=== PATIENT | male | born 1970 | race Caucasian/White ===

== ENCOUNTER 2017-02-23 10:52 | Inpatient (IN) | payer MEDICARE, OTHER ==
[~2017-02-23] VITALS: Ht 193 cm; Wt 87.5 kg
[~2017-02-23 10:52] MED LIST: CLIN-26 PO; NO HOME MEDS
[2017-02-23] MEDS ORDERED: TETanus/Pertussis (Acell)/Diphther VAC/PF (Tdap-Adult) 0.5ml syringe IMVAC ONE (11:35)
[2017-02-23 11:54] LABS: BASOPHILS % (AUTO) 0.2 % (0-1); EOSINOPHILS # (AUTO) 0.1 X10'3 (0-0.9); EOSINOPHILS % (AUTO) 0.9 % (0-6); HEMATOCRIT 29.2 % (42.0-52.0); HEMOGLOBIN 9.1 g/dl (14.0-17.9); LYMPHOCYTES # (AUTO) 0.3 X10'3 (1.1-4.8); LYMPHOCYTES % (AUTO) 3.9 % (21-51); MEAN CORPUSCULAR HEMOGLOBIN 21.5 PG (27.0-31.0); MEAN CORPUSCULAR VOLUME 69.3 FL (78-98); MONOCYTES # (AUTO) 0.7 X10'3 (0-0.9); MONOCYTES % (AUTO) 9.1 % (2-12); NEUTROPHILS # (AUTO) 6.7 X10'3 (1.8-7.7); NEUTROPHILS % (AUTO) 85.9 % (42-75); PLATELET COUNT 101 X10'3 (140-440); RED BLOOD COUNT 4.22 X10'6 (4.70-6.10); RED CELL DISTRIBUTION WIDTH 19.5 % (11.5-14.5); WHITE BLOOD COUNT 7.8 X10'3 (4.5-11.0)
[2017-02-23 12:04] LABS: ANISOCYTOSIS 2+; LARGE PLATELETS FEW; MICROCYTOSIS 2+; PLATELET ESTIMATE DECREASED
[2017-02-23 12:05] LABS: TARGET CELLS FEW
[2017-02-23 12:06] LABS: INR 1.2 INR; PARTIAL THROMBOPLASTIN TIME 33 SECONDS (22-32); PROTHROMBIN TIME 11.9 SECONDS (9.0-12.0)
[2017-02-23 12:10] LABS: ALANINE AMINOTRANSFERASE 24 U/L (12-78); ALBUMIN 3.3 G/DL (3.4-5.0); ALBUMIN/GLOBULIN RATIO 0.8 (1.1-1.5); ALKALINE PHOSPHATASE 126 IU/L (46-116); ANION GAP 6 (8-16); ASPARTATE AMINO TRANSFERASE 17 U/L (10-37); BILIRUBIN,TOTAL 0.6 MG/DL (0.1-1.0); BLOOD UREA NITROGEN 25 MG/DL (7-18); BUN/CREATININE RATIO 20.5 (5.4-32.0); CALCIUM 8.9 MG/DL (8.5-10.1); CHLORIDE 100 MMOL/L (99-107); CREATINE KINASE 53 U/L (39-308); CREATININE 1.22 MG/DL (0.60-1.10); GLUCOSE 83 MG/DL (70-104); POTASSIUM 3.9 MMOL/L (3.5-5.1); SODIUM 132 MMOL/L (135-145); TOTAL CARBON DIOXIDE 25.7 MMOL/L (24-32); TOTAL PROTEIN 7.4 G/DL (6.4-8.2); eGFR 64 ML/MIN
[2017-02-23] MEDS ORDERED: cefTRIAXone 1g/NS 100ml IVPB 100 ML IV ONE (14:05)
[2017-02-23] MEDS ORDERED: vancomycin/NS 1 GM ADD-VANTAGE 250 ML IV ONE (14:15)
[2017-02-23] MEDS ORDERED: magnesium Cl slow-release 64mg tablet PO PRN (14:35)
[2017-02-23] MEDS ORDERED: magnesium 2GM in 50ml NS 50 ML IV PRN (14:35)
[2017-02-23] MEDS ORDERED: bisacodyl 10mg suppository rectal RC PRN (14:35)
[2017-02-23] MEDS ORDERED: HYDROmorphone 1 mg/ml syringe IV PRN (14:35)
[2017-02-23] MEDS ORDERED: potassium Cl 40MEQ/NS 500ml 500 ML IV PRN ×2 (14:35)
[2017-02-23] MEDS ORDERED: potassium Cl 20 mEq SR tablet PO PRN ×2 (14:35)
[2017-02-23] MEDS ORDERED: mag hydrox/Alum hydrox/simeth 30ml oral suspension PO PRN (14:35)
[2017-02-23] MEDS ORDERED: magnesium 4gm in 100ml NS 100 ML IV PRN (14:35)
[2017-02-23] MEDS ORDERED: ondansetron/PF 4mg/2ml inj IV PRN (14:35)
[2017-02-23] MEDS ORDERED: magnesium hydroxide 30ml (MOM) UD suspension PO PRN (14:35)
[2017-02-23] MEDS: oxyCODONE IR 5mg (immed. release) tablet PO PRN (15:16)
[2017-02-23 15:50] LABS: URINE AMPHETAMINE SCREEN POSITIVE (Neg); URINE BARBITUATE SCREEN NEGATIVE (Neg); URINE BENZODIAZEPINES SCREEN NEGATIVE (Neg); URINE CANNABINOID SCREEN POSITIVE (Neg); URINE COCAINE SCREEN NEGATIVE (Neg); URINE METHADONE SCREEN NEGATIVE (Neg); URINE OPIATE SCREEN POSITIVE (Neg); URINE PHENCYCLIDINE SCREEN NEGATIVE (Neg)
[2017-02-23 16:36] VITALS: BP 118/76
[2017-02-23] MEDS ORDERED: ibuprofen tablet 400 MG TABLET PO PRN (17:05)
[2017-02-23] MEDS: folic acid 1mg tablet PO SCH (17:09)
[2017-02-23] MEDS: levoFLOXACIN-Levaquin 500mg/D5 100 ML IV SCH (17:34)
[2017-02-23] MEDS: potassium Cl 20mEq in NS 1,000 ML IV SCH (19:03)
[2017-02-23] MEDS: HYDROmorphone 1 mg/ml syringe IV PRN (19:04)
[2017-02-23] MEDS: docusate sod 100mg capsule PO SCH (19:05)
[2017-02-23 20:00] VITALS: BP 96/60
[2017-02-23] MEDS: thiamine 100mg tablet PO SCH (22:31)
[2017-02-23] MEDS: vancomycin inj 1,250 MG in normal saline 250ml IV soln 250 ML IV SCH (22:31)
[2017-02-24] VITALS: BP 104/69
[2017-02-24] MEDS: potassium Cl 20mEq in NS 1,000 ML IV SCH ×3 (00:32→23:27)
[2017-02-24 04:58] LABS: ALANINE AMINOTRANSFERASE 16 U/L (12-78); ALBUMIN 2.4 G/DL (3.4-5.0); ALBUMIN/GLOBULIN RATIO 0.7 (1.1-1.5); ALKALINE PHOSPHATASE 100 IU/L (46-116); ANION GAP 7 (8-16); ASPARTATE AMINO TRANSFERASE 17 U/L (10-37); BILIRUBIN,TOTAL 0.4 MG/DL (0.1-1.0); BLOOD UREA NITROGEN 19 MG/DL (7-18); BUN/CREATININE RATIO 22.1 (5.4-32.0); CALCIUM 7.9 MG/DL (8.5-10.1); CHLORIDE 105 MMOL/L (99-107); CREATININE 0.86 MG/DL (0.60-1.10); GLUCOSE 90 MG/DL (70-104); MAGNESIUM 1.7 MG/DL (1.5-2.4); POTASSIUM 3.8 MMOL/L (3.5-5.1); SODIUM 135 MMOL/L (135-145); TOTAL CARBON DIOXIDE 22.6 MMOL/L (24-32); TOTAL PROTEIN 5.9 G/DL (6.4-8.2); eGFR > 90 ML/MIN
[2017-02-24 05:19] LABS: BASOPHILS % (AUTO) 0.3 % (0-1); HEMATOCRIT 23.4 % (42.0-52.0); HEMOGLOBIN 7.4 g/dl (14.0-17.9); LYMPHOCYTES # (AUTO) 0.4 X10'3 (1.1-4.8); LYMPHOCYTES % (AUTO) 8.5 % (21-51); MEAN CORPUSCULAR HEMOGLOBIN 21.7 PG (27.0-31.0); MEAN CORPUSCULAR HGB CONC 31.6 % (33.0-36.5); MEAN CORPUSCULAR VOLUME 68.7 FL (78-98); MEAN PLATELET VOLUME 11.4 FL (7.4-10.4); MONOCYTES # (AUTO) 0.7 X10'3 (0-0.9); NEUTROPHILS # (AUTO) 3.1 X10'3 (1.8-7.7); NEUTROPHILS % (AUTO) 74.2 % (42-75); PLATELET COUNT 74 X10'3 (140-440); RED CELL DISTRIBUTION WIDTH 19.5 % (11.5-14.5); WHITE BLOOD COUNT 4.2 X10'3 (4.5-11.0)
[2017-02-24 07:06] LABS: HYPOCHROMASIA 2+; LARGE PLATELETS FEW; PLATELET ESTIMATE DECREASED; POLYCHROMASIA 1+
[2017-02-24 07:07] LABS: ANISOCYTOSIS 2+; MICROCYTOSIS 2+; SCHISTOCYTES FEW; TARGET CELLS FEW
[2017-02-24 07:26] VITALS: BP 103/70
[2017-02-24] MEDS ORDERED: K and/or MAG REPLACEMENT MC SCH (08:00)
[2017-02-24] MEDS ORDERED: enoxaparin 40mg/0.4ml syringe SUBCUT SCH (08:00)
[2017-02-24] MEDS: docusate sod 100mg capsule PO SCH ×2 (08:00→20:00)
[2017-02-24] MEDS: folic acid 1mg tablet PO SCH (08:22)
[2017-02-24] MEDS: vancomycin inj 1,250 MG in normal saline 250ml IV soln 250 ML IV SCH ×3 (08:22→23:00)
[2017-02-24] MEDS: thiamine 100mg tablet PO SCH ×2 (08:22→21:02)
[2017-02-24] MEDS ORDERED: gadopentetate dimeglumine 7.5 MMOL/15 ML syringe ONE (10:00)
[2017-02-24] MEDS ORDERED: pneumococcal 23-VAL P-sac vacc 25 mcg/0.5ml vial IMVAC ONE (10:00)
[2017-02-24] MEDS ORDERED: FLU VACC QS2017-18 36MOS UP/PF 60 MCG/0.5 ML SYRINGE IMVAC ONE (10:00)
[2017-02-24] MEDS: levoFLOXACIN-Levaquin 500mg/D5 100 ML IV SCH (12:06)
[2017-02-24 12:24] VITALS: BP 114/73
[2017-02-24] MEDS: oxyCODONE IR 5mg (immed. release) tablet PO PRN (16:03)
[2017-02-24] MEDS: HYDROmorphone 1 mg/ml syringe IV PRN ×2 (19:25→23:32)
[2017-02-24 19:30] VITALS: BP 112/79
[2017-02-24] MEDS ORDERED: VANCOMYCIN LEVEL IV NR (22:30)
[2017-02-24 23:00] VITALS: BP 115/78
[2017-02-24] MEDS ORDERED: potassium Cl 20mEq in NS 1,000 ML IV ONE (23:24)
[2017-02-25] MEDS: oxyCODONE IR 5mg (immed. release) tablet PO PRN (01:51)
[2017-02-25 06:33] LABS: BASOPHILS % (AUTO) 0.1 % (0-1); EOSINOPHILS % (AUTO) 1.3 % (0-6); HEMATOCRIT 26.6 % (42.0-52.0); HEMOGLOBIN 8.3 g/dl (14.0-17.9); LYMPHOCYTES # (AUTO) 0.4 X10'3 (1.1-4.8); LYMPHOCYTES % (AUTO) 10.6 % (21-51); MEAN CORPUSCULAR HEMOGLOBIN 21.6 PG (27.0-31.0); MEAN CORPUSCULAR HGB CONC 31.3 % (33.0-36.5); MEAN PLATELET VOLUME 10.8 FL (7.4-10.4); MONOCYTES # (AUTO) 0.5 X10'3 (0-0.9); MONOCYTES % (AUTO) 14.6 % (2-12); NEUTROPHILS # (AUTO) 2.6 X10'3 (1.8-7.7); NEUTROPHILS % (AUTO) 73.4 % (42-75); PLATELET COUNT 102 X10'3 (140-440); RED BLOOD COUNT 3.86 X10'6 (4.70-6.10); RED CELL DISTRIBUTION WIDTH 19.1 % (11.5-14.5); WHITE BLOOD COUNT 3.5 X10'3 (4.5-11.0)
[2017-02-25 06:57] LABS: ALANINE AMINOTRANSFERASE 23 U/L (12-78); ALBUMIN 2.8 G/DL (3.4-5.0); ALBUMIN/GLOBULIN RATIO 0.7 (1.1-1.5); ALKALINE PHOSPHATASE 120 IU/L (46-116); ANION GAP 9 (8-16); ASPARTATE AMINO TRANSFERASE 16 U/L (10-37); BILIRUBIN,TOTAL 0.4 MG/DL (0.1-1.0); BLOOD UREA NITROGEN 10 MG/DL (7-18); BUN/CREATININE RATIO 10.8 (5.4-32.0); CALCIUM 8.1 MG/DL (8.5-10.1); CHLORIDE 102 MMOL/L (99-107); CREATININE 0.93 MG/DL (0.60-1.10); GLUCOSE 101 MG/DL (70-104); MAGNESIUM 1.7 MG/DL (1.5-2.4); POTASSIUM 3.4 MMOL/L (3.5-5.1); SODIUM 135 MMOL/L (135-145); TOTAL CARBON DIOXIDE 24.2 MMOL/L (24-32); TOTAL PROTEIN 6.9 G/DL (6.4-8.2); eGFR 88 ML/MIN
[2017-02-25] MEDS ORDERED: vancomycin/NS 1 GM ADD-VANTAGE 250 ML IV SCH ×2 (07:00→09:00)
[2017-02-25 08:00] VITALS: BP 115/72
== END 2017-02-25 08:30 | disposition left against medical advice (07) | DRG 603 ==
LOC: ER 10:53 → ED HOLD 14:15 → EDBEDREQ 15:49 → MED 3N 16:31
PROVIDERS: ADMIT Internal Medicine; ATTEND Family Medicine
DX: L03.115 Cellulitis of right lower limb (principal); D69.6 Thrombocytopenia, unspecified; K70.30 Alcoholic cirrhosis of liver without ascites; E87.1 Hypo-osmolality and hyponatremia; E86.0 Dehydration; D64.9 Anemia, unspecified; F32.9 Major depressive disorder, single episode, unspecified; F41.9 Anxiety disorder, unspecified; I10 Essential (primary) hypertension; J44.9 Chronic obstructive pulmonary disease, unspecified; K21.9 Gastro-esophageal reflux disease without esophagitis; F15.90 Other stimulant use, unspecified, uncomplicated; F12.90 Cannabis use, unspecified, uncomplicated; F10.20 Alcohol dependence, uncomplicated; F17.210 Nicotine dependence, cigarettes, uncomplicated; Z53.21 Procedure and treatment not carried out due to patient leaving prior to being seen by health care provider; Z98.84 Bariatric surgery status; Z90.49 Acquired absence of other specified parts of digestive tract; Z88.0 Allergy status to penicillin; Z88.6 Allergy status to analgesic agent; Z88.8 Allergy status to other drugs, medicaments and biological substances; Z86.73 Personal history of transient ischemic attack (TIA), and cerebral infarction without residual deficits; Z87.11 Personal history of peptic ulcer disease
CPT/HCPCS: 36415; 73590; 73720; 80053; 80202; 80305; 80320; 82550; 83735; 85025; 85610; 85730; 87040; 87070; 90471; 90715; 90732; 93971; 97162; 97530; 99285; A6212; A6446; A6449; A9579; J0696; J1170; J1650; J1956; J3370; J7030; Q2037

== ENCOUNTER 2018-03-08 09:06 | Emergency (ER) | payer MEDICARE, OTHER ==
[~2018-03-08 09:06] MED LIST changes: -CLIN-26 PO
[2018-03-08 09:11] VITALS: BP 103/68
--- NOTE | 2018-03-08 09:40 | NUR ---
Deon allen in ED - 03/08/18 at 0942 by [email or web address] Unknown trauma to finger. States may have slammed it in a door but doesn't remember. 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
--- NOTE | 2018-03-08 09:43 | NUR ---
Unknown trauma to finger. 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
--- NOTE | 2018-03-08 11:01 | NUR ---
pt washed hand with soap and water, took ring off hand. simple dressing applied. will continue to monitor.
[2018-03-08] MEDS ORDERED: SULF1TAB49 PO (11:04)
== END 2018-03-08 11:15 | disposition home or self-care (01) ==
LOC: ER 09:07
DX: L02.512 Cutaneous abscess of left hand (principal); J44.9 Chronic obstructive pulmonary disease, unspecified; K21.9 Gastro-esophageal reflux disease without esophagitis; F12.90 Cannabis use, unspecified, uncomplicated; F15.90 Other stimulant use, unspecified, uncomplicated; Z86.73 Personal history of transient ischemic attack (TIA), and cerebral infarction without residual deficits; Z90.49 Acquired absence of other specified parts of digestive tract; Z88.1 Allergy status to other antibiotic agents; Z88.0 Allergy status to penicillin; Z88.8 Allergy status to other drugs, medicaments and biological substances
CPT/HCPCS: 26010; 73140; 99283

== ENCOUNTER 2018-03-12 18:29 | Emergency (ER) | payer MEDICARE, OTHER ==
[~2018-03-12] VITALS: Ht 193 cm; Wt 82.7 kg
[~2018-03-12 18:29] MED LIST changes: +SULF1TAB49 PO
[2018-03-12 19:29] LABS: BASOPHILS % (AUTO) 0.4 % (0-1); EOSINOPHILS % (AUTO) 1.4 % (0-6); HEMATOCRIT 24.2 % (42.0-52.0); HEMOGLOBIN 7.4 g/dl (14.0-17.9); LYMPHOCYTES # (AUTO) 0.4 X10'3 (1.1-4.8); LYMPHOCYTES % (AUTO) 13.9 % (21-51); MEAN CORPUSCULAR HGB CONC 30.6 g/dL (33.0-36.5); MEAN CORPUSCULAR VOLUME 65.1 FL (78-98); MONOCYTES # (AUTO) 0.3 X10'3 (0-0.9); MONOCYTES % (AUTO) 13.8 % (2-12); NEUTROPHILS # (AUTO) 1.8 X10'3 (1.8-7.7); NEUTROPHILS % (AUTO) 70.5 % (42-75); RED BLOOD COUNT 3.71 X10'6 (4.70-6.10); RED CELL DISTRIBUTION WIDTH 23.5 % (11.5-14.5); WHITE BLOOD COUNT 2.5 X10'3 (4.5-11.0)
[2018-03-12 19:40] LABS: ALANINE AMINOTRANSFERASE 20 U/L (12-78); ALBUMIN 2.8 G/DL (3.4-5.0); ALBUMIN/GLOBULIN RATIO 0.9 (1.1-1.5); ALKALINE PHOSPHATASE 91 IU/L (46-116); ANION GAP 10 (8-16); ASPARTATE AMINO TRANSFERASE 21 U/L (10-37); BILIRUBIN,TOTAL 0.3 MG/DL (0.1-1.0); BLOOD UREA NITROGEN 12 MG/DL (7-18); BUN/CREATININE RATIO 12.1 (5.4-32.0); CALCIUM 7.5 MG/DL (8.5-10.1); CHLORIDE 112 MMOL/L (99-107); CREATININE 0.99 MG/DL (0.60-1.10); GLUCOSE 175 MG/DL (70-104); POTASSIUM 3.7 MMOL/L (3.5-5.1); SODIUM 145 MMOL/L (135-145); TOTAL CARBON DIOXIDE 22.7 MMOL/L (24-32); TOTAL PROTEIN 5.8 G/DL (6.4-8.2); eGFR 81 ML/MIN
[2018-03-12 20:25] LABS: TOTAL CELLS COUNTED 100
[2018-03-12 20:27] LABS: ACANTHOCYTES FEW; ANISOCYTOSIS 3+; ELLIPTOCYTES FEW; HYPOCHROMASIA 1+; MICROCYTOSIS 2+; PLATELET ESTIMATE DECREASED; POIKILOCYTOSIS 1+
[2018-03-12 20:28] LABS: GIANT PLATELET FEW; LARGE PLATELETS FEW; PLATELET COUNT 130 X10'3 (140-440)
[2018-03-12] MEDS ORDERED: normal saline 1000ML IV soln IVB ONE (20:45)
[2018-03-12] MEDS ORDERED: ondansetron/PF 4mg/2ml inj IV ONE (20:45)
[2018-03-12 20:52] LABS: ETHANOL < 0.010 GM/DL (0.0-0.010)
[2018-03-12 20:53] LABS: LIPASE 112 U/L (73-393)
[2018-03-12 22:19] VITALS: BP 116/61
[2018-03-14 08:50] LABS: OCCULT BLOOD STOOL NEGATIVE (Neg)
== END 2018-03-12 22:22 | disposition home or self-care (01) ==
LOC: ER 18:30
DX: R55 Syncope and collapse (principal); K86.89 Other specified diseases of pancreas; D64.89 Other specified anemias; F15.10 Other stimulant abuse, uncomplicated; R10.13 Epigastric pain; J44.9 Chronic obstructive pulmonary disease, unspecified; K21.9 Gastro-esophageal reflux disease without esophagitis; F12.90 Cannabis use, unspecified, uncomplicated; Z87.11 Personal history of peptic ulcer disease; Z86.73 Personal history of transient ischemic attack (TIA), and cerebral infarction without residual deficits; Z98.84 Bariatric surgery status; Z90.49 Acquired absence of other specified parts of digestive tract; Z98.890 Other specified postprocedural states; Z88.6 Allergy status to analgesic agent; Z88.0 Allergy status to penicillin; Z88.1 Allergy status to other antibiotic agents
CPT/HCPCS: 36415; 71045; 74176; 80053; 80320; 82272; 83690; 84484; 85025; 86885; 86900; 86901; 93005; 96361; 96374; 99284; J2405; J7030

== ENCOUNTER 2018-03-18 15:03 | Emergency (ER) | payer MEDICARE, OTHER ==
[~2018-03-18] VITALS: Ht 193 cm; Wt 87.0 kg
[2018-03-18 15:09] VITALS: BP 108/87
[2018-03-18] MEDS ORDERED: mupirocin 2% ointment 22GM TP STA (15:37)
[2018-03-18] MEDS ORDERED: traMADol 50MG tablet PO ONE (15:40)
[2018-03-18] MEDS ORDERED: TRAM50TA2 PO (15:40)
[2018-03-18] MEDS ORDERED: mupirocin 2% nasal ointment 1gm UD NS STA (15:42)
== END 2018-03-18 15:58 | disposition home or self-care (01) ==
LOC: ER 15:03
DX: S93.402A Sprain of unspecified ligament of left ankle, initial encounter (principal); L03.012 Cellulitis of left finger; J44.9 Chronic obstructive pulmonary disease, unspecified; K21.9 Gastro-esophageal reflux disease without esophagitis; F12.90 Cannabis use, unspecified, uncomplicated; F15.90 Other stimulant use, unspecified, uncomplicated; Z90.49 Acquired absence of other specified parts of digestive tract; Z88.6 Allergy status to analgesic agent; Z88.1 Allergy status to other antibiotic agents; Z88.0 Allergy status to penicillin; Z88.8 Allergy status to other drugs, medicaments and biological substances; Z86.73 Personal history of transient ischemic attack (TIA), and cerebral infarction without residual deficits; W01.0XXA Fall on same level from slipping, tripping and stumbling without subsequent striking against object, initial encounter; Y93.01 Activity, walking, marching and hiking; Y92.89 Other specified places as the place of occurrence of the external cause; Y99.8 Other external cause status
CPT/HCPCS: 73610; 99284

== ENCOUNTER 2018-03-19 10:58 | Emergency (ER) | payer MEDICARE, OTHER ==
[~2018-03-19] VITALS: Ht 193 cm; Wt 82.0 kg
[~2018-03-19 10:58] MED LIST changes: +TRAM50TA2 PO
[2018-03-19 11:10] VITALS: BP 105/66
== END 2018-03-19 12:51 | disposition home or self-care (01) ==
LOC: ER 10:58
DX: M25.572 Pain in left ankle and joints of left foot (principal); J44.9 Chronic obstructive pulmonary disease, unspecified; K21.9 Gastro-esophageal reflux disease without esophagitis; Z86.73 Personal history of transient ischemic attack (TIA), and cerebral infarction without residual deficits; F12.90 Cannabis use, unspecified, uncomplicated; F15.90 Other stimulant use, unspecified, uncomplicated; Z90.49 Acquired absence of other specified parts of digestive tract; Z98.890 Other specified postprocedural states; Z88.1 Allergy status to other antibiotic agents; Z88.6 Allergy status to analgesic agent; Z88.0 Allergy status to penicillin; Z88.8 Allergy status to other drugs, medicaments and biological substances; Z79.899 Other long term (current) drug therapy; Z59.0 Homelessness; W01.0XXA Fall on same level from slipping, tripping and stumbling without subsequent striking against object, initial encounter; Y93.01 Activity, walking, marching and hiking; Y92.89 Other specified places as the place of occurrence of the external cause; Y99.8 Other external cause status
CPT/HCPCS: 99281

== ENCOUNTER 2018-03-24 20:15 | Emergency (ER) | payer MEDICARE, OTHER ==
[~2018-03-24] VITALS: Ht 175.3 cm; Wt 67.8 kg
[~2018-03-24 20:15] MED LIST changes: -SULF1TAB49 PO
[2018-03-24 20:39] VITALS: BP 118/76
[2018-03-24] MEDS ORDERED: naproxen 500mg tablet PO ONE (22:25)
[2018-03-24] MEDS ORDERED: HYDROmorphone 2mg tablet PO ONE (22:25)
[2018-03-24] MEDS ORDERED: LIDOcaine 1% 30ml preserv. free vial IJ ONE (22:40)
[2018-03-24] MEDS ORDERED: sulfamethoxazole/trimethoprim DS (800/160mg) tablet PO ONE (23:50)
== END 2018-03-25 00:32 | disposition home or self-care (01) ==
LOC: ER 20:16
DX: S61.301A Unspecified open wound of left index finger with damage to nail, initial encounter (principal); L03.012 Cellulitis of left finger; J44.9 Chronic obstructive pulmonary disease, unspecified; F12.90 Cannabis use, unspecified, uncomplicated; F15.90 Other stimulant use, unspecified, uncomplicated; Z59.0 Homelessness; Z86.73 Personal history of transient ischemic attack (TIA), and cerebral infarction without residual deficits; Z87.11 Personal history of peptic ulcer disease; Z86.14 Personal history of Methicillin resistant Staphylococcus aureus infection; Z90.49 Acquired absence of other specified parts of digestive tract; Z98.890 Other specified postprocedural states; Z98.84 Bariatric surgery status; Z88.6 Allergy status to analgesic agent; Z88.0 Allergy status to penicillin; Z88.1 Allergy status to other antibiotic agents; X58.XXXA Exposure to other specified factors, initial encounter; Y93.89 Activity, other specified; Y92.89 Other specified places as the place of occurrence of the external cause; Y99.9 Unspecified external cause status
CPT/HCPCS: 11730; 73140; 99283; J3490

== ENCOUNTER 2018-04-01 19:51 | Emergency (ER) | payer MEDICARE, OTHER ==
[~2018-04-01] VITALS: Ht 193 cm; Wt 87.6 kg
[~2018-04-01 19:51] MED LIST changes: -TRAM50TA2 PO
[2018-04-01 20:14] VITALS: BP 105/65
[2018-04-01] MEDS ORDERED: ibuprofen tablet 400 MG TABLET PO ONE (22:25)
[2018-04-01] MEDS ORDERED: IBUP-1984 PO (22:25)
== END 2018-04-01 22:48 | disposition home or self-care (01) ==
LOC: ER 19:51
DX: M79.645 Pain in left finger(s) (principal); F32.9 Major depressive disorder, single episode, unspecified; J44.9 Chronic obstructive pulmonary disease, unspecified; K21.9 Gastro-esophageal reflux disease without esophagitis; Z86.14 Personal history of Methicillin resistant Staphylococcus aureus infection; Z86.73 Personal history of transient ischemic attack (TIA), and cerebral infarction without residual deficits; F12.90 Cannabis use, unspecified, uncomplicated; F15.90 Other stimulant use, unspecified, uncomplicated; Z90.49 Acquired absence of other specified parts of digestive tract; Z98.890 Other specified postprocedural states; Z88.6 Allergy status to analgesic agent; Z88.1 Allergy status to other antibiotic agents; Z88.0 Allergy status to penicillin; Z88.8 Allergy status to other drugs, medicaments and biological substances; Z79.899 Other long term (current) drug therapy; Z59.0 Homelessness
CPT/HCPCS: 99282

== ENCOUNTER 2019-01-21 22:03 | Emergency (ER) | payer MEDICARE ==
[~2019-01-21] VITALS: Ht 180.3 cm; Wt 77.3 kg
[2019-01-21 22:04] VITALS: BP 122/79
[2019-01-21] MEDS ORDERED: ondansetron 4mg rapidly disintigrating tab PO ONE (22:10)
--- NOTE | 2019-01-21 22:15 | NUR ---
ATTEMPTED TO OBTAIN UA. PT STATES "I CANT THERES NOTHING THERE." WILL CONTINUE TO ATTEMPT TO COLLECT UA SAMPLE.
[2019-01-21 22:34] LABS: BASOPHILS % (AUTO) 1.1 % (0-1); EOSINOPHILS # (AUTO) 0.1 X10'3 (0-0.9); EOSINOPHILS % (AUTO) 1.8 % (0-6); LYMPHOCYTES # (AUTO) 0.6 X10'3 (1.1-4.8); LYMPHOCYTES % (AUTO) 15.7 % (21-51); MEAN CORPUSCULAR HEMOGLOBIN 31.2 PG (27.0-31.0); MEAN CORPUSCULAR HGB CONC 34.2 g/dL (33.0-36.5); MEAN CORPUSCULAR VOLUME 91.1 FL (78-98); MEAN PLATELET VOLUME 9.5 FL (7.4-10.4); MONOCYTES # (AUTO) 0.4 X10'3 (0-0.9); MONOCYTES % (AUTO) 11.7 % (2-12); NEUTROPHILS # (AUTO) 2.7 X10'3 (1.8-7.7); NEUTROPHILS % (AUTO) 69.7 % (42-75); RED BLOOD COUNT 4.49 X10'6 (4.70-6.10); RED CELL DISTRIBUTION WIDTH 13.5 % (11.5-14.5); WHITE BLOOD COUNT 3.8 X10'3 (4.5-11.0)
[2019-01-21 22:43] LABS: ALANINE AMINOTRANSFERASE 34 U/L (12-78); ALBUMIN 3.9 G/DL (3.4-5.0); ALBUMIN/GLOBULIN RATIO 1.3 (1.1-1.5); ALKALINE PHOSPHATASE 119 IU/L (46-116); ANION GAP 2 (8-16); ASPARTATE AMINO TRANSFERASE 22 U/L (10-37); BILIRUBIN,TOTAL 0.6 MG/DL (0.1-1.0); BLOOD UREA NITROGEN 20 MG/DL (7-18); BUN/CREATININE RATIO 18.7 (5.4-32.0); CALCIUM 8.8 MG/DL (8.5-10.1); CHLORIDE 108 MMOL/L (99-107); CREATININE 1.07 MG/DL (0.60-1.10); ETHANOL < 0.010 GM/DL (0.0-0.010); GLUCOSE 80 MG/DL (70-104); LIPASE 118 U/L (73-393); POTASSIUM 4.8 MMOL/L (3.5-5.1); SODIUM 142 MMOL/L (135-145); TOTAL CARBON DIOXIDE 32.3 MMOL/L (24-32); eGFR 74 ML/MIN
[2019-01-21 22:57] LABS: PLATELET COUNT 98 X10'3 (140-440)
[2019-01-21] MEDS ORDERED: ONDA8TAB13 PO (23:05)
== END 2019-01-21 23:10 | disposition home or self-care (01) ==
LOC: ER 22:03
DX: R11.2 Nausea with vomiting, unspecified (principal); R10.11 Right upper quadrant pain; J44.9 Chronic obstructive pulmonary disease, unspecified; K21.9 Gastro-esophageal reflux disease without esophagitis; F41.9 Anxiety disorder, unspecified; F32.9 Major depressive disorder, single episode, unspecified; Z86.2 Personal history of diseases of the blood and blood-forming organs and certain disorders involving the immune mechanism; Z86.73 Personal history of transient ischemic attack (TIA), and cerebral infarction without residual deficits; Z86.14 Personal history of Methicillin resistant Staphylococcus aureus infection; Z90.49 Acquired absence of other specified parts of digestive tract; Z98.84 Bariatric surgery status; Z98.890 Other specified postprocedural states; Z88.8 Allergy status to other drugs, medicaments and biological substances; Z88.0 Allergy status to penicillin; Z88.1 Allergy status to other antibiotic agents; Z79.899 Other long term (current) drug therapy
CPT/HCPCS: 80053; 80320; 83690; 85025; 99283

== ENCOUNTER 2019-01-23 17:57 | Emergency (ER) | payer MEDICARE ==
[~2019-01-23] VITALS: Ht 193 cm; Wt 85.0 kg
[~2019-01-23 17:57] MED LIST changes: +ONDA8TAB13 PO
[2019-01-23 18:03] VITALS: BP 127/89
--- NOTE | 2019-01-23 19:35 | NUR ---
Assisted and chaperoned a rectal exam completed by the provider.
[2019-01-23] MEDS ORDERED: DOXYCYCLINE 100MG CAPSULE PO STA (19:48)
[2019-01-23] MEDS ORDERED: ondansetron 4mg rapidly disintigrating tab PO ONE (19:50)
[2019-01-23] MEDS ORDERED: ONDA4TAB6 PO (20:09)
== END 2019-01-23 20:35 | disposition home or self-care (01) ==
LOC: ER 17:58
DX: K62.5 Hemorrhage of anus and rectum (principal); R11.2 Nausea with vomiting, unspecified; J44.9 Chronic obstructive pulmonary disease, unspecified; K21.9 Gastro-esophageal reflux disease without esophagitis; F41.9 Anxiety disorder, unspecified; F32.9 Major depressive disorder, single episode, unspecified; F10.99 Alcohol use, unspecified with unspecified alcohol-induced disorder; F12.90 Cannabis use, unspecified, uncomplicated; F15.90 Other stimulant use, unspecified, uncomplicated; Z86.73 Personal history of transient ischemic attack (TIA), and cerebral infarction without residual deficits; Z90.49 Acquired absence of other specified parts of digestive tract; Z98.84 Bariatric surgery status; Z86.2 Personal history of diseases of the blood and blood-forming organs and certain disorders involving the immune mechanism; Z86.14 Personal history of Methicillin resistant Staphylococcus aureus infection; Z86.69 Personal history of other diseases of the nervous system and sense organs; Z59.0 Homelessness; Z88.6 Allergy status to analgesic agent; Z88.0 Allergy status to penicillin; Z88.1 Allergy status to other antibiotic agents; Z88.8 Allergy status to other drugs, medicaments and biological substances; Z79.899 Other long term (current) drug therapy; Y90.9 Presence of alcohol in blood, level not specified
CPT/HCPCS: 99283

== ENCOUNTER 2019-01-27 12:41 | Emergency (ER) | payer MEDICARE ==
[~2019-01-27] VITALS: Ht 188 cm; Wt 90.1 kg
[~2019-01-27 12:41] MED LIST changes: +ONDA4TAB6 PO
[2019-01-27 12:45] VITALS: BP 110/78
[2019-01-27] MEDS ORDERED: ondansetron 4mg rapidly disintigrating tab PO ONE (14:45)
[2019-01-27] MEDS ORDERED: ONDA8TAB13 PO (14:59)
[2019-01-27] MEDS ORDERED: DOXY100C43 PO (14:59)
[2019-01-28] MEDS ORDERED: ONDA4TAB6 PO (12:11)
== END 2019-01-27 16:15 | disposition home or self-care (01) ==
LOC: ER 12:41
DX: R11.10 Vomiting, unspecified (principal); J44.9 Chronic obstructive pulmonary disease, unspecified; K21.9 Gastro-esophageal reflux disease without esophagitis; F41.9 Anxiety disorder, unspecified; F29 Unspecified psychosis not due to a substance or known physiological condition; E11.9 Type 2 diabetes mellitus without complications; F12.90 Cannabis use, unspecified, uncomplicated; F15.90 Other stimulant use, unspecified, uncomplicated; F17.200 Nicotine dependence, unspecified, uncomplicated; Z00.00 Encounter for general adult medical examination without abnormal findings; Z88.0 Allergy status to penicillin; Z88.6 Allergy status to analgesic agent; Z88.8 Allergy status to other drugs, medicaments and biological substances; Z88.1 Allergy status to other antibiotic agents; Z79.899 Other long term (current) drug therapy; Z87.19 Personal history of other diseases of the digestive system; Z87.11 Personal history of peptic ulcer disease; Z86.14 Personal history of Methicillin resistant Staphylococcus aureus infection; Z86.73 Personal history of transient ischemic attack (TIA), and cerebral infarction without residual deficits; Z90.49 Acquired absence of other specified parts of digestive tract; Z98.84 Bariatric surgery status; Z98.890 Other specified postprocedural states; Z59.0 Homelessness
CPT/HCPCS: 99283

== ENCOUNTER 2019-01-28 07:41 | Emergency (ER) | payer MEDICARE ==
[~2019-01-28] VITALS: Ht 185.4 cm; Wt 90.0 kg
[~2019-01-28 07:41] MED LIST changes: +DOXY100C43 PO
[2019-01-28] MEDS ORDERED: ketorolac tromethamine 15mg/ml inj. IV ONE (08:40)
[2019-01-28 09:28] LABS: BASOPHILS % (AUTO) 0.6 % (0-1); EOSINOPHILS % (AUTO) 1.2 % (0-6); HEMATOCRIT 36.6 % (42.0-52.0); HEMOGLOBIN 12.5 g/dl (14.0-17.9); LYMPHOCYTES # (AUTO) 0.4 X10'3 (1.1-4.8); LYMPHOCYTES % (AUTO) 15.1 % (21-51); MEAN CORPUSCULAR HEMOGLOBIN 31.8 PG (27.0-31.0); MEAN CORPUSCULAR HGB CONC 34.2 g/dL (33.0-36.5); MEAN CORPUSCULAR VOLUME 92.9 FL (78-98); MEAN PLATELET VOLUME 9.1 FL (7.4-10.4); MONOCYTES # (AUTO) 0.4 X10'3 (0-0.9); MONOCYTES % (AUTO) 15.2 % (2-12); NEUTROPHILS # (AUTO) 1.9 X10'3 (1.8-7.7); NEUTROPHILS % (AUTO) 67.9 % (42-75); PLATELET COUNT 86 X10'3 (140-440); RED BLOOD COUNT 3.94 X10'6 (4.70-6.10); RED CELL DISTRIBUTION WIDTH 13.5 % (11.5-14.5); WHITE BLOOD COUNT 2.8 X10'3 (4.5-11.0)
[2019-01-28 09:47] LABS: ALANINE AMINOTRANSFERASE 127 U/L (12-78); ALBUMIN 3.3 G/DL (3.4-5.0); ALBUMIN/GLOBULIN RATIO 1.1 (1.1-1.5); ALKALINE PHOSPHATASE 147 IU/L (46-116); ANION GAP 4 (8-16); ASPARTATE AMINO TRANSFERASE 85 U/L (10-37); BILIRUBIN,TOTAL 0.4 MG/DL (0.1-1.0); BLOOD UREA NITROGEN 19 MG/DL (7-18); BUN/CREATININE RATIO 22.9 (5.4-32.0); CALCIUM 8.5 MG/DL (8.5-10.1); CHLORIDE 108 MMOL/L (99-107); CREATININE 0.83 MG/DL (0.60-1.10); GLUCOSE 86 MG/DL (70-104); LIPASE 131 U/L (73-393); POTASSIUM 3.7 MMOL/L (3.5-5.1); SODIUM 143 MMOL/L (135-145); TOTAL CARBON DIOXIDE 31.4 MMOL/L (24-32); TOTAL PROTEIN 6.2 G/DL (6.4-8.2); eGFR > 90 ML/MIN
[2019-01-28 10:06] LABS: PLATELET ESTIMATE DECREASED; TOTAL CELLS COUNTED 100
[2019-01-28 11:36] LABS: CLARITY,URINE CLEAR (Clear); GLUCOSE, URINE NEGATIVE (Neg); KETONES,URINE NEGATIVE (Neg); LEUKOCYTE ESTERASE ,URINE NEGATIVE (Neg); NITRITES, URINE NEGATIVE (Neg); OCCULT BLOOD,URINE NEGATIVE (Neg); PROTEIN,URINE NEGATIVE (Neg)
[2019-01-28 11:41] LABS: COLOR,URINE DARK YELLOW (Yellow); UA COLLECTION TYPE CLN CATCH MIDSTREAM
[2019-01-28] MEDS ORDERED: ONDA4TAB6 PO (12:11)
[2019-01-28] MEDS ORDERED: ondansetron 4mg rapidly disintigrating tab PO ONE (13:15)
[2019-01-28 13:24] VITALS: BP 107/66
== END 2019-01-28 13:26 | disposition home or self-care (01) ==
LOC: ER 07:41
DX: R11.2 Nausea with vomiting, unspecified (principal); R19.7 Diarrhea, unspecified; J44.9 Chronic obstructive pulmonary disease, unspecified; K21.9 Gastro-esophageal reflux disease without esophagitis; F12.90 Cannabis use, unspecified, uncomplicated; F15.90 Other stimulant use, unspecified, uncomplicated; Z59.0 Homelessness; Z86.73 Personal history of transient ischemic attack (TIA), and cerebral infarction without residual deficits; Z90.49 Acquired absence of other specified parts of digestive tract; Z98.890 Other specified postprocedural states; Z98.84 Bariatric surgery status; Z87.11 Personal history of peptic ulcer disease; Z86.14 Personal history of Methicillin resistant Staphylococcus aureus infection; Z88.6 Allergy status to analgesic agent; Z88.0 Allergy status to penicillin; Z88.1 Allergy status to other antibiotic agents
CPT/HCPCS: 36415; 80053; 81003; 83690; 85025; 96374; 99283; J1885

== ENCOUNTER 2019-01-29 08:25 | Emergency (ER) | payer MEDICARE | END 2019-01-29 08:40 | disposition left against medical advice (07) | LOC: ER 08:26 | DX: Z76.0 Encounter for issue of repeat prescription (principal); Z53.21 Procedure and treatment not carried out due to patient leaving prior to being seen by health care provider ==

== ENCOUNTER 2019-01-30 20:20 | Emergency (ER) | payer MEDICARE ==
[~2019-01-30] VITALS: Ht 188 cm; Wt 93.5 kg
[2019-01-30 22:30] VITALS: BP 120/72
== END 2019-01-30 22:58 | disposition home or self-care (01) ==
LOC: ER 20:21
DX: F31.9 Bipolar disorder, unspecified (principal); J18.9 Pneumonia, unspecified organism; J44.9 Chronic obstructive pulmonary disease, unspecified; K21.9 Gastro-esophageal reflux disease without esophagitis; F41.9 Anxiety disorder, unspecified; F12.90 Cannabis use, unspecified, uncomplicated; F15.90 Other stimulant use, unspecified, uncomplicated; Z87.11 Personal history of peptic ulcer disease; Z86.14 Personal history of Methicillin resistant Staphylococcus aureus infection; Z59.0 Homelessness; Z86.73 Personal history of transient ischemic attack (TIA), and cerebral infarction without residual deficits; Z88.6 Allergy status to analgesic agent; Z88.0 Allergy status to penicillin; Z88.1 Allergy status to other antibiotic agents
CPT/HCPCS: 99281

== ENCOUNTER 2019-02-14 13:49 | Emergency (ER) | payer MEDICARE ==
[~2019-02-14] VITALS: Ht 188 cm; Wt 93.0 kg
[~2019-02-14 13:49] MED LIST changes: -DOXY100C43 PO
--- NOTE | 2019-02-14 14:15 | NUR ---
NOT IN LOBBY
[2019-02-14 14:21] VITALS: BP 102/58
[2019-02-14] MEDS ORDERED: ibuprofen 200mg tablet PO ONE (15:00)
== END 2019-02-14 15:28 | disposition home or self-care (01) ==
LOC: ER 13:50
DX: S90.122A Contusion of left lesser toe(s) without damage to nail, initial encounter (principal); M79.672 Pain in left foot; J44.9 Chronic obstructive pulmonary disease, unspecified; K21.9 Gastro-esophageal reflux disease without esophagitis; F12.90 Cannabis use, unspecified, uncomplicated; F15.90 Other stimulant use, unspecified, uncomplicated; Z59.0 Homelessness; Z86.73 Personal history of transient ischemic attack (TIA), and cerebral infarction without residual deficits; Z90.49 Acquired absence of other specified parts of digestive tract; Z98.890 Other specified postprocedural states; Z98.84 Bariatric surgery status; Z88.6 Allergy status to analgesic agent; Z88.0 Allergy status to penicillin; Z88.1 Allergy status to other antibiotic agents; W45.8XXA Other foreign body or object entering through skin, initial encounter; Y93.02 Activity, running; Y92.89 Other specified places as the place of occurrence of the external cause; Y99.9 Unspecified external cause status
CPT/HCPCS: 73630; 99283

== ENCOUNTER 2019-02-19 03:57 | Emergency (ER) | payer MEDICARE ==
[~2019-02-19] VITALS: Ht 188 cm; Wt 90.5 kg
[2019-02-19 04:59] VITALS: BP 98/70
== END 2019-02-19 05:05 | disposition home or self-care (01) ==
LOC: ER 03:58
DX: R06.2 Wheezing (principal); J44.9 Chronic obstructive pulmonary disease, unspecified; K21.9 Gastro-esophageal reflux disease without esophagitis; F12.90 Cannabis use, unspecified, uncomplicated; F15.90 Other stimulant use, unspecified, uncomplicated; Z59.0 Homelessness; Z86.73 Personal history of transient ischemic attack (TIA), and cerebral infarction without residual deficits; Z90.49 Acquired absence of other specified parts of digestive tract; Z98.890 Other specified postprocedural states; Z98.84 Bariatric surgery status; Z87.11 Personal history of peptic ulcer disease
CPT/HCPCS: 99283

== ENCOUNTER 2019-02-23 20:03 | Emergency (ER) | payer MEDICARE ==
[~2019-02-23] VITALS: Ht 185.4 cm; Wt 90.0 kg
[2019-02-23 20:07] VITALS: BP 122/80
== END 2019-02-23 21:11 | disposition home or self-care (01) ==
LOC: ER 20:04
DX: R41.0 Disorientation, unspecified (principal); J44.9 Chronic obstructive pulmonary disease, unspecified; K21.9 Gastro-esophageal reflux disease without esophagitis; F12.90 Cannabis use, unspecified, uncomplicated; F15.90 Other stimulant use, unspecified, uncomplicated; Z59.0 Homelessness; Z90.49 Acquired absence of other specified parts of digestive tract; Z86.73 Personal history of transient ischemic attack (TIA), and cerebral infarction without residual deficits; Z98.890 Other specified postprocedural states; Z98.84 Bariatric surgery status; Z88.6 Allergy status to analgesic agent; Z88.0 Allergy status to penicillin; Z88.1 Allergy status to other antibiotic agents; Y04.0XXA Assault by unarmed brawl or fight, initial encounter; Y93.89 Activity, other specified; Y92.89 Other specified places as the place of occurrence of the external cause; Y99.9 Unspecified external cause status
CPT/HCPCS: 99284

== ENCOUNTER 2019-02-24 15:05 | Emergency (ER) | payer MEDICARE ==
[~2019-02-24] VITALS: Ht 157.5 cm; Wt 100.0 kg
[2019-02-24] MEDS ORDERED: ketorolac trometh inj. 60 MG/2 ML VIAL IM ONE (16:20)
[2019-02-24 16:32] VITALS: BP 99/55
== END 2019-02-24 16:33 | disposition home or self-care (01) ==
LOC: ER 15:05
DX: M79.671 Pain in right foot (principal); M79.672 Pain in left foot; J44.9 Chronic obstructive pulmonary disease, unspecified; K21.9 Gastro-esophageal reflux disease without esophagitis; F12.90 Cannabis use, unspecified, uncomplicated; F15.90 Other stimulant use, unspecified, uncomplicated; Z86.73 Personal history of transient ischemic attack (TIA), and cerebral infarction without residual deficits; Z59.0 Homelessness; Z98.890 Other specified postprocedural states; Z98.84 Bariatric surgery status; Z88.6 Allergy status to analgesic agent; Z88.0 Allergy status to penicillin; Z88.1 Allergy status to other antibiotic agents
CPT/HCPCS: 96372; 99283; J1885

== ENCOUNTER 2019-02-24 21:20 | Emergency (ER) | payer MEDICARE ==
[~2019-02-24] VITALS: Ht 188 cm; Wt 90.5 kg
[2019-02-24 21:25] VITALS: BP 145/85
[2019-02-24] MEDS ORDERED: ibuprofen tablet 400 MG TABLET PO ONE (22:10)
== END 2019-02-24 22:33 | disposition home or self-care (01) ==
LOC: ER 21:21
DX: R51 Headache (principal); R55 Syncope and collapse; R42 Dizziness and giddiness; J44.9 Chronic obstructive pulmonary disease, unspecified; K21.9 Gastro-esophageal reflux disease without esophagitis; F32.9 Major depressive disorder, single episode, unspecified; F41.9 Anxiety disorder, unspecified; F17.200 Nicotine dependence, unspecified, uncomplicated; F10.99 Alcohol use, unspecified with unspecified alcohol-induced disorder; Z86.73 Personal history of transient ischemic attack (TIA), and cerebral infarction without residual deficits; Z86.14 Personal history of Methicillin resistant Staphylococcus aureus infection; Z86.69 Personal history of other diseases of the nervous system and sense organs; Z90.49 Acquired absence of other specified parts of digestive tract; Z98.84 Bariatric surgery status; Z98.890 Other specified postprocedural states; Z59.0 Homelessness; Z88.0 Allergy status to penicillin; Z88.6 Allergy status to analgesic agent; Z88.8 Allergy status to other drugs, medicaments and biological substances; Z79.899 Other long term (current) drug therapy; Y90.9 Presence of alcohol in blood, level not specified
CPT/HCPCS: 93005; 99284

== ENCOUNTER 2019-06-08 15:02 | Emergency (ER) | payer MEDICARE, OTHER ==
[~2019-06-08] VITALS: Ht 188 cm; Wt 90.9 kg
[~2019-06-08 15:02] MED LIST changes: +IBUP-1984 PO; +MORP15TA PO; -NO HOME MEDS; -ONDA4TAB6 PO; -ONDA8TAB13 PO; +SULF1TAB49 PO
[2019-06-08 17:32] LABS: BASOPHILS % (AUTO) 0.8 % (0-1); EOSINOPHILS % (AUTO) 1.1 % (0-6); HEMATOCRIT 27.4 % (42.0-52.0); HEMOGLOBIN 8.9 g/dl (14.0-17.9); LYMPHOCYTES # (AUTO) 0.4 X10'3 (1.1-4.8); MEAN CORPUSCULAR HEMOGLOBIN 28.1 PG (27.0-31.0); MEAN CORPUSCULAR HGB CONC 32.5 g/dL (33.0-36.5); MEAN CORPUSCULAR VOLUME 86.5 FL (78-98); MEAN PLATELET VOLUME 7.8 FL (7.4-10.4); MONOCYTES # (AUTO) 0.4 X10'3 (0-0.9); MONOCYTES % (AUTO) 11.5 % (2-12); NEUTROPHILS # (AUTO) 2.7 X10'3 (1.8-7.7); NEUTROPHILS % (AUTO) 74.6 % (42-75); PLATELET COUNT 230 X10'3 (140-440); RED BLOOD COUNT 3.17 X10'6 (4.70-6.10); RED CELL DISTRIBUTION WIDTH 15.2 % (11.5-14.5); WHITE BLOOD COUNT 3.6 X10'3 (4.5-11.0)
[2019-06-08 17:49] LABS: ALANINE AMINOTRANSFERASE 34 U/L (12-78); ALBUMIN 1.9 G/DL (3.4-5.0); ALBUMIN/GLOBULIN RATIO 0.3 (1.1-1.5); ALKALINE PHOSPHATASE 131 IU/L (46-116); ANION GAP 3 (8-16); ASPARTATE AMINO TRANSFERASE 37 U/L (10-37); BILIRUBIN,TOTAL 0.4 MG/DL (0.1-1.0); BLOOD UREA NITROGEN 10 MG/DL (7-18); BUN/CREATININE RATIO 10.5 (5.4-32.0); CALCIUM 7.9 MG/DL (8.5-10.1); CHLORIDE 105 MMOL/L (99-107); CREATININE 0.95 MG/DL (0.60-1.10); GLUCOSE 72 MG/DL (70-104); POTASSIUM 3.7 MMOL/L (3.5-5.1); SODIUM 139 MMOL/L (135-145); TOTAL CARBON DIOXIDE 30.8 MMOL/L (24-32); TOTAL PROTEIN 7.4 G/DL (6.4-8.2); eGFR 85 ML/MIN
[2019-06-08 17:54] VITALS: BP 149/102
[2019-06-08] MEDS ORDERED: SULF1TAB49 PO (18:11)
== END 2019-06-08 18:20 | disposition home or self-care (01) ==
LOC: ER 15:03
DX: L03.116 Cellulitis of left lower limb (principal); J44.9 Chronic obstructive pulmonary disease, unspecified; K21.9 Gastro-esophageal reflux disease without esophagitis; F41.9 Anxiety disorder, unspecified; F32.9 Major depressive disorder, single episode, unspecified; Z86.2 Personal history of diseases of the blood and blood-forming organs and certain disorders involving the immune mechanism; Z86.73 Personal history of transient ischemic attack (TIA), and cerebral infarction without residual deficits; Z90.49 Acquired absence of other specified parts of digestive tract; Z98.84 Bariatric surgery status; Z59.0 Homelessness; Z86.69 Personal history of other diseases of the nervous system and sense organs; Z88.0 Allergy status to penicillin; Z88.1 Allergy status to other antibiotic agents; Z88.8 Allergy status to other drugs, medicaments and biological substances; Z79.899 Other long term (current) drug therapy
CPT/HCPCS: 36415; 80053; 83605; 84145; 85025; 87040; 99283

== ENCOUNTER 2020-07-14 07:16 | Emergency (ER) | payer MEDICARE ==
[~2020-07-14] VITALS: Ht 190.5 cm; Wt 90.5 kg
[~2020-07-14 07:16] MED LIST changes: -IBUP-1984 PO; -MORP15TA PO; +NAPR220T67 PO; -SULF1TAB49 PO
[2020-07-14 07:23] VITALS: BP 154/98
[2020-07-14] MEDS ORDERED: CefTRIAXone 2gm/D5W 50ml BAG 50 ML IV ONE (07:45)
--- NOTE | 2020-07-14 08:55 | NUR ---
PT WALKED OUT OF ER AND REFUSING TO STAY FOR TX. PT STATES HE CAN'T JUST SIT IN A ROOM AND DO NOTHING. PT REINFORMED/EDUCATED ON RISKS OF NOT STAYING FOR TX AND PT REFUSING TO GO ALONG WITH PLAN OF CARE. PT WALKED OUT AND SAUSAGE SMOKER FOLLOWED PT OUTSIDE AND REMOVED IV OF L AC.
== END 2020-07-14 09:04 | disposition left against medical advice (07) ==
LOC: ER 07:17
DX: M86.8X1 Other osteomyelitis, shoulder (principal); F15.10 Other stimulant abuse, uncomplicated; J44.9 Chronic obstructive pulmonary disease, unspecified; K21.9 Gastro-esophageal reflux disease without esophagitis; F41.9 Anxiety disorder, unspecified; F32.9 Major depressive disorder, single episode, unspecified; Z86.73 Personal history of transient ischemic attack (TIA), and cerebral infarction without residual deficits; Z86.69 Personal history of other diseases of the nervous system and sense organs; Z87.11 Personal history of peptic ulcer disease; Z86.2 Personal history of diseases of the blood and blood-forming organs and certain disorders involving the immune mechanism; Z86.14 Personal history of Methicillin resistant Staphylococcus aureus infection; Z90.49 Acquired absence of other specified parts of digestive tract; Z98.890 Other specified postprocedural states; Z72.89 Other problems related to lifestyle; Z59.0 Homelessness; Z88.6 Allergy status to analgesic agent; Z88.0 Allergy status to penicillin; Z88.1 Allergy status to other antibiotic agents; Z88.8 Allergy status to other drugs, medicaments and biological substances; Z79.899 Other long term (current) drug therapy
CPT/HCPCS: 96365; 99284; J0696

== ENCOUNTER 2020-07-26 13:40 | Emergency (ER) | payer MEDICARE ==
[~2020-07-26] VITALS: Ht 190.5 cm; Wt 92.3 kg
[2020-07-26 13:54] VITALS: BP 121/86
[2020-07-26 14:26] LABS: BASOPHILS % (AUTO) 0.9 % (0-1); EOSINOPHILS # (AUTO) 0.1 X10'3 (0-0.9); EOSINOPHILS % (AUTO) 2.3 % (0-6); HEMATOCRIT 30.7 % (42.0-52.0); HEMOGLOBIN 9.8 g/dl (14.0-17.9); LYMPHOCYTES # (AUTO) 0.6 X10'3 (1.1-4.8); LYMPHOCYTES % (AUTO) 14.7 % (21-51); MEAN CORPUSCULAR HEMOGLOBIN 24.8 PG (27.0-31.0); MEAN CORPUSCULAR VOLUME 77.5 FL (78-98); MEAN PLATELET VOLUME 9.2 FL (7.4-10.4); MONOCYTES # (AUTO) 0.5 X10'3 (0-0.9); NEUTROPHILS # (AUTO) 2.7 X10'3 (1.8-7.7); NEUTROPHILS % (AUTO) 68.1 % (42-75); PLATELET COUNT 152 X10'3 (140-440); RED BLOOD COUNT 3.96 X10'6 (4.70-6.10); RED CELL DISTRIBUTION WIDTH 16.4 % (11.5-14.5); WHITE BLOOD COUNT 3.9 X10'3 (4.5-11.0)
[2020-07-26 14:46] LABS: ALANINE AMINOTRANSFERASE 19 U/L (12-78); ALBUMIN 3.2 G/DL (3.4-5.0); ALBUMIN/GLOBULIN RATIO 0.9 (1.1-1.5); ALKALINE PHOSPHATASE 160 IU/L (46-116); ANION GAP 8 (8-16); ASPARTATE AMINO TRANSFERASE 14 U/L (10-37); BILIRUBIN,TOTAL 0.2 MG/DL (0.1-1.0); BLOOD UREA NITROGEN 20 MG/DL (7-18); CALCIUM 8.4 MG/DL (8.5-10.1); CHLORIDE 107 MMOL/L (99-107); CREATININE 0.91 MG/DL (0.60-1.10); GLUCOSE 86 MG/DL (70-104); POTASSIUM 5.1 MMOL/L (3.5-5.1); SODIUM 141 MMOL/L (135-145); TOTAL PROTEIN 6.7 G/DL (6.4-8.2); eGFR 89 ML/MIN
[2020-07-26 14:49] LABS: C-REACTIVE PROTEIN 0.23 MG/DL (0.0-0.5)
[2020-07-26] MEDS ORDERED: DOXY100C43 PO (14:53)
== END 2020-07-26 15:00 | disposition home or self-care (01) ==
LOC: ER 13:41
DX: T81.89XA Other complications of procedures, not elsewhere classified, initial encounter (principal); M25.511 Pain in right shoulder; Z88.0 Allergy status to penicillin; Z88.1 Allergy status to other antibiotic agents; Z88.8 Allergy status to other drugs, medicaments and biological substances; Z79.2 Long term (current) use of antibiotics; G40.909 Epilepsy, unspecified, not intractable, without status epilepticus; J44.9 Chronic obstructive pulmonary disease, unspecified; K21.9 Gastro-esophageal reflux disease without esophagitis; Z86.14 Personal history of Methicillin resistant Staphylococcus aureus infection; Z86.19 Personal history of other infectious and parasitic diseases; Z86.2 Personal history of diseases of the blood and blood-forming organs and certain disorders involving the immune mechanism; Z87.11 Personal history of peptic ulcer disease; Z59.0 Homelessness; Z90.49 Acquired absence of other specified parts of digestive tract; Z98.84 Bariatric surgery status; Y92.89 Other specified places as the place of occurrence of the external cause
CPT/HCPCS: 36415; 80053; 85025; 85651; 86140; 99283

== ENCOUNTER 2021-03-03 22:36 | Emergency (ER) | payer MEDICARE ==
[~2021-03-03] VITALS: Ht 190.5 cm; Wt 90.0 kg
[2021-03-03 23:12] VITALS: BP 138/78
[2021-03-04] MEDS ORDERED: SULF1TAB49 PO (11:09)
[2021-03-10] MEDS ORDERED: DOXY100C43 PO (19:06)
== END 2021-03-04 04:28 | disposition left against medical advice (07) ==
LOC: ER 22:37
DX: L85.3 Xerosis cutis (principal); Z53.21 Procedure and treatment not carried out due to patient leaving prior to being seen by health care provider

== ENCOUNTER 2021-03-04 05:55 | Emergency (ER) | payer MEDICARE ==
[~2021-03-04] VITALS: Ht 190.5 cm; Wt 90.0 kg
[2021-03-04 06:58] VITALS: BP 122/67
[2021-03-04] MEDS ORDERED: TETanus/Pertussis (Acell)/Diphther VAC/PF (Tdap-Adult) 0.5ml syringe IMVAC ONE (11:05)
[2021-03-04] MEDS ORDERED: sulfamethoxazole/trimethoprim DS (800/160mg) tablet PO ONE (11:05)
[2021-03-04] MEDS ORDERED: SULF1TAB49 PO (11:09)
[2021-03-10] MEDS ORDERED: DOXY100C43 PO (19:06)
== END 2021-03-04 14:47 | disposition home or self-care (01) ==
LOC: ER 05:56
DX: I83.018 Varicose veins of right lower extremity with ulcer other part of lower leg (principal); I83.028 Varicose veins of left lower extremity with ulcer other part of lower leg; M79.662 Pain in left lower leg; M79.661 Pain in right lower leg; M25.531 Pain in right wrist; J44.9 Chronic obstructive pulmonary disease, unspecified; K21.9 Gastro-esophageal reflux disease without esophagitis; F41.9 Anxiety disorder, unspecified; F32.9 Major depressive disorder, single episode, unspecified; Z86.73 Personal history of transient ischemic attack (TIA), and cerebral infarction without residual deficits; Z86.69 Personal history of other diseases of the nervous system and sense organs; Z87.11 Personal history of peptic ulcer disease; Z86.2 Personal history of diseases of the blood and blood-forming organs and certain disorders involving the immune mechanism; Z86.14 Personal history of Methicillin resistant Staphylococcus aureus infection; Z90.49 Acquired absence of other specified parts of digestive tract; Z98.890 Other specified postprocedural states; Z20.3 Contact with and (suspected) exposure to rabies; Z72.89 Other problems related to lifestyle; Z59.00 Homelessness unspecified; Z88.0 Allergy status to penicillin; Z88.1 Allergy status to other antibiotic agents; Z88.6 Allergy status to analgesic agent; Z79.2 Long term (current) use of antibiotics
CPT/HCPCS: 87070; 87077; 87186; 90471; 90715; 99283

== ENCOUNTER 2021-03-06 20:50 | Emergency (ER) | payer MEDICARE ==
[~2021-03-06] VITALS: Ht 190.5 cm; Wt 90.5 kg
[~2021-03-06 20:50] MED LIST changes: +SULF1TAB49 PO
[2021-03-06 21:35] VITALS: BP 134/87
--- NOTE | 2021-03-07 01:05 | NUR ---
Pt. called back to a room, pt. did not want to get up from lobby to come back. stated "Leave me alone"
[2021-03-10] MEDS ORDERED: DOXY100C43 PO (19:06)
== END 2021-03-07 05:15 | disposition home or self-care (01) ==
LOC: ER 20:52
DX: M79.605 Pain in left leg (principal); M79.604 Pain in right leg; R60.0 Localized edema; G40.909 Epilepsy, unspecified, not intractable, without status epilepticus; J44.9 Chronic obstructive pulmonary disease, unspecified; K21.9 Gastro-esophageal reflux disease without esophagitis; Z86.73 Personal history of transient ischemic attack (TIA), and cerebral infarction without residual deficits; Z86.2 Personal history of diseases of the blood and blood-forming organs and certain disorders involving the immune mechanism; Z87.11 Personal history of peptic ulcer disease; Z86.19 Personal history of other infectious and parasitic diseases; Z86.14 Personal history of Methicillin resistant Staphylococcus aureus infection; Z90.49 Acquired absence of other specified parts of digestive tract; Z98.84 Bariatric surgery status; Z59.00 Homelessness unspecified; Z88.8 Allergy status to other drugs, medicaments and biological substances; Z88.0 Allergy status to penicillin; Z88.1 Allergy status to other antibiotic agents; Z79.899 Other long term (current) drug therapy
CPT/HCPCS: 99283

== ENCOUNTER → 2021-03-10 | Emergency (ER) | payer MEDICARE ==
[~2021-03-10] VITALS: Ht 193 cm; Wt 90.9 kg
[~2021-03-10] MED LIST changes: +DOXY100C43 PO; +sulfamethoxazole/trimethoprim DS (800/160mg) tablet PO ONE
[2021-03-10 18:00] VITALS: BP 126/83
== END | disposition home or self-care (01) ==
LOC: ER 16:53
DX: L03.116 Cellulitis of left lower limb (principal); G40.909 Epilepsy, unspecified, not intractable, without status epilepticus; J44.9 Chronic obstructive pulmonary disease, unspecified; K21.9 Gastro-esophageal reflux disease without esophagitis; Z59.00 Homelessness unspecified; Z86.73 Personal history of transient ischemic attack (TIA), and cerebral infarction without residual deficits; Z87.11 Personal history of peptic ulcer disease; Z86.2 Personal history of diseases of the blood and blood-forming organs and certain disorders involving the immune mechanism; Z86.19 Personal history of other infectious and parasitic diseases; Z86.14 Personal history of Methicillin resistant Staphylococcus aureus infection; Z90.49 Acquired absence of other specified parts of digestive tract; Z98.84 Bariatric surgery status; Z72.89 Other problems related to lifestyle
CPT/HCPCS: 99283

== ENCOUNTER 2021-03-13 20:18 | Emergency (ER) | payer MEDICARE ==
[~2021-03-13] VITALS: Ht 193 cm; Wt 90.5 kg
[~2021-03-13 20:18] MED LIST changes: -SULF1TAB49 PO; -sulfamethoxazole/trimethoprim DS (800/160mg) tablet PO ONE
[2021-03-13 20:22] VITALS: BP 138/88
[2021-03-13] MEDS ORDERED: ondansetron 4mg rapidly disintigrating tab PO ONE (20:25)
== END 2021-03-13 20:35 | disposition home or self-care (01) ==
LOC: ER 20:19
DX: R11.0 Nausea (principal); R60.0 Localized edema; G40.909 Epilepsy, unspecified, not intractable, without status epilepticus; J44.9 Chronic obstructive pulmonary disease, unspecified; K21.9 Gastro-esophageal reflux disease without esophagitis; Z87.19 Personal history of other diseases of the digestive system; Z86.14 Personal history of Methicillin resistant Staphylococcus aureus infection; Z87.11 Personal history of peptic ulcer disease; Z86.2 Personal history of diseases of the blood and blood-forming organs and certain disorders involving the immune mechanism; Z86.19 Personal history of other infectious and parasitic diseases; Z86.73 Personal history of transient ischemic attack (TIA), and cerebral infarction without residual deficits; Z90.49 Acquired absence of other specified parts of digestive tract; Z98.84 Bariatric surgery status; Z72.89 Other problems related to lifestyle; Z59.00 Homelessness unspecified; Z88.0 Allergy status to penicillin; Z88.1 Allergy status to other antibiotic agents; Z88.8 Allergy status to other drugs, medicaments and biological substances; Z79.899 Other long term (current) drug therapy
CPT/HCPCS: 99283

== ENCOUNTER 2021-03-16 19:35 | Emergency (ER) | payer MEDICARE ==
[~2021-03-16] VITALS: Ht 193 cm; Wt 69.1 kg
[2021-03-16 20:21] VITALS: BP 133/85
--- NOTE | 2021-03-16 21:30 | NUR ---
Patient taking monitoring equipment off. Addendum: 03/16/21 at 2234 by AGRIMMER Patient taking monitoring equipment off. Requiring verbal reinforcement to keep monitoring equipment on.
[2021-03-16 22:20] LABS: BASOPHILS # (AUTO) 0.1 X10'3 (0-0.2); BASOPHILS % (AUTO) 1.1 % (0-1); EOSINOPHILS # (AUTO) 0.1 X10'3 (0-0.9); EOSINOPHILS % (AUTO) 1.5 % (0-6); HEMATOCRIT 25.7 % (42.0-52.0); HEMOGLOBIN 8.4 g/dl (14.0-17.9); LYMPHOCYTES # (AUTO) 0.7 X10'3 (1.1-4.8); LYMPHOCYTES % (AUTO) 11.8 % (21-51); MEAN CORPUSCULAR HGB CONC 32.5 g/dL (33.0-36.5); MEAN CORPUSCULAR VOLUME 73.7 FL (78-98); MEAN PLATELET VOLUME 7.4 FL (7.4-10.4); MONOCYTES # (AUTO) 0.5 X10'3 (0-0.9); MONOCYTES % (AUTO) 8.3 % (2-12); NEUTROPHILS # (AUTO) 4.9 X10'3 (1.8-7.7); NEUTROPHILS % (AUTO) 77.3 % (42-75); PLATELET COUNT 275 X10'3 (140-440); RED BLOOD COUNT 3.49 X10'6 (4.70-6.10); RED CELL DISTRIBUTION WIDTH 17.6 % (11.5-14.5); WHITE BLOOD COUNT 6.3 X10'3 (4.5-11.0)
[2021-03-16 22:35] LABS: ALANINE AMINOTRANSFERASE 31 U/L (12-78); ALBUMIN 2.7 G/DL (3.4-5.0); ALBUMIN/GLOBULIN RATIO 0.6 (1.1-1.5); ALKALINE PHOSPHATASE 122 IU/L (46-116); ANION GAP 7 (8-16); ASPARTATE AMINO TRANSFERASE 37 U/L (10-37); BILIRUBIN,DIRECT 0.1 MG/DL (0-0.3); BILIRUBIN,TOTAL 0.3 MG/DL (0.1-1.0); BLOOD UREA NITROGEN 17 MG/DL (7-18); BUN/CREATININE RATIO 16.8 (5.4-32.0); CHLORIDE 104 MMOL/L (99-107); CREATININE 1.01 MG/DL (0.60-1.10); GLUCOSE 94 MG/DL (70-104); LIPASE 86 U/L (73-393); POTASSIUM 4.2 MMOL/L (3.5-5.1); SODIUM 138 MMOL/L (135-145); TOTAL CARBON DIOXIDE 27.1 MMOL/L (24-32); TOTAL PROTEIN 7.2 G/DL (6.4-8.2); eGFR 79 ML/MIN
== END 2021-03-16 23:55 | disposition home or self-care (01) ==
LOC: ER 19:36
DX: M79.605 Pain in left leg (principal); M79.604 Pain in right leg; M25.561 Pain in right knee; M25.562 Pain in left knee; R10.84 Generalized abdominal pain; R60.9 Edema, unspecified; G40.909 Epilepsy, unspecified, not intractable, without status epilepticus; J44.9 Chronic obstructive pulmonary disease, unspecified; K21.9 Gastro-esophageal reflux disease without esophagitis; Z86.19 Personal history of other infectious and parasitic diseases; Z86.14 Personal history of Methicillin resistant Staphylococcus aureus infection; Z86.73 Personal history of transient ischemic attack (TIA), and cerebral infarction without residual deficits; Z90.49 Acquired absence of other specified parts of digestive tract; Z95.5 Presence of coronary angioplasty implant and graft; Z72.89 Other problems related to lifestyle; Z59.00 Homelessness unspecified; Z88.0 Allergy status to penicillin; Z88.1 Allergy status to other antibiotic agents; Z88.8 Allergy status to other drugs, medicaments and biological substances; Z79.2 Long term (current) use of antibiotics
CPT/HCPCS: 36415; 71045; 80048; 80076; 83690; 85025; 99284

== ENCOUNTER 2021-03-23 17:38 | Emergency (ER) | payer MEDICARE ==
[~2021-03-23] VITALS: Ht 193 cm; Wt 84.0 kg
[2021-03-23 17:48] VITALS: BP 125/74
--- NOTE | 2021-03-23 18:15 | NUR ---
B LE wrapped in kerlex and gentely wrapped with derik wraps.
== END 2021-03-23 18:30 | disposition home or self-care (01) ==
LOC: ER 17:38
DX: I87.8 Other specified disorders of veins (principal); R60.0 Localized edema; J44.9 Chronic obstructive pulmonary disease, unspecified; K21.9 Gastro-esophageal reflux disease without esophagitis; F41.9 Anxiety disorder, unspecified; F32.9 Major depressive disorder, single episode, unspecified; Z86.73 Personal history of transient ischemic attack (TIA), and cerebral infarction without residual deficits; Z86.69 Personal history of other diseases of the nervous system and sense organs; Z87.11 Personal history of peptic ulcer disease; Z86.2 Personal history of diseases of the blood and blood-forming organs and certain disorders involving the immune mechanism; Z86.14 Personal history of Methicillin resistant Staphylococcus aureus infection; Z90.49 Acquired absence of other specified parts of digestive tract; Z98.890 Other specified postprocedural states; Z72.89 Other problems related to lifestyle; Z59.00 Homelessness unspecified; Z88.6 Allergy status to analgesic agent; Z88.0 Allergy status to penicillin; Z88.1 Allergy status to other antibiotic agents; Z79.2 Long term (current) use of antibiotics
CPT/HCPCS: 99283

== ENCOUNTER 2021-04-01 17:21 | Emergency (ER) | payer MEDICARE ==
[~2021-04-01] VITALS: Ht 190.5 cm; Wt 84.8 kg
[2021-04-01 17:25] VITALS: BP 118/70
[2021-04-01] MEDS ORDERED: SULF1TAB49 PO (18:24)
== END 2021-04-01 20:39 | disposition home or self-care (01) ==
LOC: ER 17:22
DX: S80.922A Unspecified superficial injury of left lower leg, initial encounter (principal); S80.921A Unspecified superficial injury of right lower leg, initial encounter; G89.29 Other chronic pain; M25.512 Pain in left shoulder; M79.605 Pain in left leg; M79.601 Pain in right arm; J44.9 Chronic obstructive pulmonary disease, unspecified; K21.9 Gastro-esophageal reflux disease without esophagitis; F41.9 Anxiety disorder, unspecified; F32.A Depression, unspecified; Z59.00 Homelessness unspecified; Z86.73 Personal history of transient ischemic attack (TIA), and cerebral infarction without residual deficits; Z86.69 Personal history of other diseases of the nervous system and sense organs; Z87.11 Personal history of peptic ulcer disease; Z86.2 Personal history of diseases of the blood and blood-forming organs and certain disorders involving the immune mechanism; Z86.14 Personal history of Methicillin resistant Staphylococcus aureus infection; Z90.49 Acquired absence of other specified parts of digestive tract; Z98.890 Other specified postprocedural states; Z72.89 Other problems related to lifestyle; Z88.0 Allergy status to penicillin; Z88.6 Allergy status to analgesic agent; Z88.1 Allergy status to other antibiotic agents; Z88.8 Allergy status to other drugs, medicaments and biological substances; Z79.2 Long term (current) use of antibiotics; X58.XXXA Exposure to other specified factors, initial encounter; Y93.89 Activity, other specified; Y92.89 Other specified places as the place of occurrence of the external cause; Y99.8 Other external cause status
CPT/HCPCS: 99283

== ENCOUNTER 2021-04-03 18:54 | Emergency (ER) | payer MEDICARE ==
[~2021-04-03] VITALS: Ht 185.4 cm; Wt 100.0 kg
[~2021-04-03 18:54] MED LIST changes: -DOXY100C43 PO; +SULF1TAB49 PO
[2021-04-03 18:59] VITALS: BP 140/90
--- NOTE | 2021-04-04 01:13 | NUR ---
Patient had knives in bag, security cld to take until patient leaves.
== END 2021-04-04 02:06 | disposition home or self-care (01) ==
LOC: ER 18:55
DX: R45.851 Suicidal ideations (principal); R41.3 Other amnesia; J44.9 Chronic obstructive pulmonary disease, unspecified; K21.9 Gastro-esophageal reflux disease without esophagitis; Z86.73 Personal history of transient ischemic attack (TIA), and cerebral infarction without residual deficits; Z87.19 Personal history of other diseases of the digestive system; Z86.2 Personal history of diseases of the blood and blood-forming organs and certain disorders involving the immune mechanism; Z86.19 Personal history of other infectious and parasitic diseases; Z86.14 Personal history of Methicillin resistant Staphylococcus aureus infection; Z87.11 Personal history of peptic ulcer disease; Z90.49 Acquired absence of other specified parts of digestive tract; Z98.84 Bariatric surgery status; Z72.89 Other problems related to lifestyle; Z59.00 Homelessness unspecified; Z88.0 Allergy status to penicillin; Z88.8 Allergy status to other drugs, medicaments and biological substances; Z88.1 Allergy status to other antibiotic agents; Z79.899 Other long term (current) drug therapy; Z91.19 Patient's noncompliance with other medical treatment and regimen
CPT/HCPCS: 99283

== ENCOUNTER 2021-04-23 16:56 | Emergency (ER) | payer MEDICARE ==
[~2021-04-23] VITALS: Ht 190.5 cm; Wt 84.1 kg
[~2021-04-23 16:56] MED LIST changes: -SULF1TAB49 PO
[2021-04-23] MEDS ORDERED: IBUP-1984 PO (18:14)
[2021-04-23] MEDS ORDERED: ibuprofen tablet 400 MG TABLET PO ONE (18:15)
[2021-04-23] MEDS ORDERED: SULF1TAB49 PO (18:52)
[2021-04-23] MEDS ORDERED: MUPI22OI30 TOP (18:53)
[2021-04-23 19:03] VITALS: BP 104/76
== END 2021-04-23 19:00 | disposition home or self-care (01) ==
LOC: ER 16:58
DX: M25.511 Pain in right shoulder (principal); J44.9 Chronic obstructive pulmonary disease, unspecified; K21.9 Gastro-esophageal reflux disease without esophagitis; F41.9 Anxiety disorder, unspecified; F32.A Depression, unspecified; Z86.73 Personal history of transient ischemic attack (TIA), and cerebral infarction without residual deficits; Z86.69 Personal history of other diseases of the nervous system and sense organs; Z87.11 Personal history of peptic ulcer disease; Z86.2 Personal history of diseases of the blood and blood-forming organs and certain disorders involving the immune mechanism; Z86.14 Personal history of Methicillin resistant Staphylococcus aureus infection; Z90.49 Acquired absence of other specified parts of digestive tract; Z98.890 Other specified postprocedural states; Z72.89 Other problems related to lifestyle; Z59.00 Homelessness unspecified; Z88.0 Allergy status to penicillin; Z88.6 Allergy status to analgesic agent; Z88.1 Allergy status to other antibiotic agents; Z79.899 Other long term (current) drug therapy
CPT/HCPCS: 73000; 99284

== ENCOUNTER 2021-04-26 01:22 | Emergency (ER) | payer MEDICARE ==
[~2021-04-26] VITALS: Ht 190.5 cm; Wt 84.1 kg
[~2021-04-26 01:22] MED LIST changes: +IBUP-1984 PO; +MUPI22OI30 TOP; +SULF1TAB49 PO
[2021-04-26 02:28] LABS: BASOPHILS % (AUTO) 1.1 % (0-1); EOSINOPHILS # (AUTO) 0.1 X10'3 (0-0.9); EOSINOPHILS % (AUTO) 2.3 % (0-6); HEMATOCRIT 26.1 % (42.0-52.0); LYMPHOCYTES # (AUTO) 0.6 X10'3 (1.1-4.8); LYMPHOCYTES % (AUTO) 16.5 % (21-51); MEAN CORPUSCULAR HEMOGLOBIN 22.2 PG (27.0-31.0); MEAN CORPUSCULAR HGB CONC 30.6 g/dL (33.0-36.5); MEAN CORPUSCULAR VOLUME 72.7 FL (78-98); MEAN PLATELET VOLUME 8.1 FL (7.4-10.4); MONOCYTES # (AUTO) 0.4 X10'3 (0-0.9); MONOCYTES % (AUTO) 12.1 % (2-12); NEUTROPHILS # (AUTO) 2.4 X10'3 (1.8-7.7); PLATELET COUNT 186 X10'3 (140-440); RED BLOOD COUNT 3.59 X10'6 (4.70-6.10); RED CELL DISTRIBUTION WIDTH 17.8 % (11.5-14.5); WHITE BLOOD COUNT 3.5 X10'3 (4.5-11.0)
[2021-04-26 02:37] LABS: ALANINE AMINOTRANSFERASE 20 U/L (12-78); ALBUMIN 3.4 G/DL (3.4-5.0); ALBUMIN/GLOBULIN RATIO 0.8 (1.1-1.5); ALKALINE PHOSPHATASE 119 IU/L (46-116); ANION GAP 8 (8-16); ASPARTATE AMINO TRANSFERASE 22 U/L (10-37); BILIRUBIN,TOTAL 0.3 MG/DL (0.1-1.0); BLOOD UREA NITROGEN 21 MG/DL (7-18); BUN/CREATININE RATIO 31.3 (5.4-32.0); CALCIUM 8.6 MG/DL (8.5-10.1); CHLORIDE 107 MMOL/L (99-107); CREATININE 0.67 MG/DL (0.60-1.10); GLUCOSE 96 MG/DL (70-104); SODIUM 140 MMOL/L (135-145); TOTAL CARBON DIOXIDE 25.5 MMOL/L (24-32); TOTAL PROTEIN 7.8 G/DL (6.4-8.2); eGFR > 90 ML/MIN
--- NOTE | 2021-04-26 06:40 | NUR ---
Pt was in a deep sleep upon greeting. C/O R shoulder pain.
[2021-04-26 07:18] VITALS: BP 117/81
== END 2021-04-26 07:22 | disposition home or self-care (01) ==
LOC: ER 01:22
DX: R07.89 Other chest pain (principal); R06.02 Shortness of breath; R11.0 Nausea; J44.9 Chronic obstructive pulmonary disease, unspecified; K21.9 Gastro-esophageal reflux disease without esophagitis; F41.9 Anxiety disorder, unspecified; F32.A Depression, unspecified; Z86.73 Personal history of transient ischemic attack (TIA), and cerebral infarction without residual deficits; Z86.69 Personal history of other diseases of the nervous system and sense organs; Z87.11 Personal history of peptic ulcer disease; Z86.2 Personal history of diseases of the blood and blood-forming organs and certain disorders involving the immune mechanism; Z86.14 Personal history of Methicillin resistant Staphylococcus aureus infection; Z90.49 Acquired absence of other specified parts of digestive tract; Z98.890 Other specified postprocedural states; Z72.89 Other problems related to lifestyle; Z59.00 Homelessness unspecified; Z88.0 Allergy status to penicillin; Z88.6 Allergy status to analgesic agent; Z88.1 Allergy status to other antibiotic agents; Z88.8 Allergy status to other drugs, medicaments and biological substances; Z79.2 Long term (current) use of antibiotics; Z79.899 Other long term (current) drug therapy
CPT/HCPCS: 36415; 71045; 80053; 84484; 85025; 93005; 99285

== ENCOUNTER 2021-04-26 14:26 | Emergency (ER) | payer MEDICARE ==
[~2021-04-26] VITALS: Ht 190.5 cm; Wt 84.1 kg
[2021-04-26 16:52] VITALS: BP 128/86
== END 2021-04-26 16:57 | disposition home or self-care (01) ==
LOC: ER 14:26
DX: F31.11 Bipolar disorder, current episode manic without psychotic features, mild (principal); J44.9 Chronic obstructive pulmonary disease, unspecified; K21.9 Gastro-esophageal reflux disease without esophagitis; D64.9 Anemia, unspecified; F31.9 Bipolar disorder, unspecified; I51.9 Heart disease, unspecified; F12.10 Cannabis abuse, uncomplicated; Z59.00 Homelessness unspecified; Z88.6 Allergy status to analgesic agent; Z88.0 Allergy status to penicillin; Z79.899 Other long term (current) drug therapy; Z88.1 Allergy status to other antibiotic agents
CPT/HCPCS: 99283; 99285

== ENCOUNTER 2021-05-09 14:10 | Emergency (ER) | payer MEDICARE ==
[~2021-05-09] VITALS: Ht 190.5 cm; Wt 81.8 kg
[~2021-05-09 14:10] MED LIST changes: -MUPI22OI30 TOP; -SULF1TAB49 PO
--- NOTE | 2021-05-09 18:45 | NUR ---
pt provided food and beverage by Joaquin bueno
--- NOTE | 2021-05-09 18:46 | NUR ---
Pt presents here in the ed states "I'm a 5150. I'm having suicidal thoughts with a plan of killing myself. I'm planning on jumping off the [place] and landing on my head." The pt states he's upset about everything, has not eaten in 6-7 days, [address], and has a hx of bipolar, manic depressive d/o.
--- NOTE | 2021-05-09 18:55 | NUR ---
discussed the need for urine spec, pt voiced understanding; pt provided urinal
--- NOTE | 2021-05-09 19:15 | NUR ---
pt requesting juice, states he needs to drink in order to void, yet reluctant to drink water.
[2021-05-09 19:35] LABS: BASOPHILS % (AUTO) 0.9 % (0-1); HEMATOCRIT 25.5 % (42.0-52.0); HEMOGLOBIN 7.7 g/dl (14.0-17.9); LYMPHOCYTES # (AUTO) 0.7 X10'3 (1.1-4.8); LYMPHOCYTES % (AUTO) 28.4 % (21-51); MEAN CORPUSCULAR HGB CONC 30.2 g/dL (33.0-36.5); MEAN CORPUSCULAR VOLUME 69.8 FL (78-98); MEAN PLATELET VOLUME 7.9 FL (7.4-10.4); MONOCYTES # (AUTO) 0.3 X10'3 (0-0.9); MONOCYTES % (AUTO) 11.7 % (2-12); NEUTROPHILS # (AUTO) 1.4 X10'3 (1.8-7.7); PLATELET COUNT 159 X10'3 (140-440); RED BLOOD COUNT 3.65 X10'6 (4.70-6.10); RED CELL DISTRIBUTION WIDTH 18.2 % (11.5-14.5); WHITE BLOOD COUNT 2.4 X10'3 (4.5-11.0)
[2021-05-09 19:49] LABS: ALANINE AMINOTRANSFERASE 20 U/L (12-78); ALBUMIN 3.3 G/DL (3.4-5.0); ALBUMIN/GLOBULIN RATIO 0.9 (1.1-1.5); ALKALINE PHOSPHATASE 107 IU/L (46-116); ANION GAP 8 (8-16); ASPARTATE AMINO TRANSFERASE 16 U/L (10-37); BILIRUBIN,TOTAL 0.3 MG/DL (0.1-1.0); BLOOD UREA NITROGEN 18 MG/DL (7-18); BUN/CREATININE RATIO 23.7 (5.4-32.0); CALCIUM 8.3 MG/DL (8.5-10.1); CHLORIDE 105 MMOL/L (99-107); CREATININE 0.76 MG/DL (0.60-1.10); GLUCOSE 104 MG/DL (70-104); POTASSIUM 3.9 MMOL/L (3.5-5.1); SODIUM 140 MMOL/L (135-145); TOTAL CARBON DIOXIDE 27.2 MMOL/L (24-32); eGFR > 90 ML/MIN
[2021-05-09 19:51] LABS: ETHANOL < 0.010 GM/DL (0.0-0.010)
[2021-05-09 21:07] LABS: ANISOCYTOSIS 2+; PLATELET ESTIMATE NORMAL
[2021-05-09 21:08] LABS: MICROCYTOSIS 2+; POLYCHROMASIA FEW
[2021-05-09 21:09] LABS: TARGET CELLS FEW; TEAR DROP CELLS FEW
--- NOTE | 2021-05-09 21:20 | NUR ---
PATIENT ARRIVED ON THE UNIT IN NO OBVIOUS DISTRESS. NO PHYSICAL COMPLAINT MADE. PATIENT BREATHING SPONTANOUSLY ON ROOM AIR . PATIENT STATES THAT HE IS HAVING SUICIDAL IDEATION WITH PLANS TO JUMP OFF A BRIDGE OR WALKING OUTM IN TRAFFIC. PATIENT DENIES HAVING ANY HALLUCINATION OR DELUSION THOUGHTS AT THIS TIME.
--- NOTE | 2021-05-09 22:00 | NUR ---
Pt unable to void for urine spec; report called to VICK Arellano for pt going to bed 25 OF
[2021-05-09 22:37] LABS: CLARITY,URINE CLEAR (Clear); COLOR,URINE YELLOW (Yellow); GLUCOSE, URINE NEGATIVE (Neg); KETONES,URINE NEGATIVE (Neg); LEUKOCYTE ESTERASE ,URINE NEGATIVE (Neg); NITRITES, URINE NEGATIVE (Neg); OCCULT BLOOD,URINE NEGATIVE (Neg); PROTEIN,URINE NEGATIVE (Neg)
[2021-05-09 22:38] LABS: UA COLLECTION TYPE VOIDED
[2021-05-09 22:47] LABS: URINE AMPHETAMINE SCREEN NEGATIVE (Neg); URINE BARBITUATE SCREEN NEGATIVE (Neg); URINE BENZODIAZEPINES SCREEN NEGATIVE (Neg); URINE CANNABINOID SCREEN POSITIVE (Neg); URINE COCAINE SCREEN NEGATIVE (Neg); URINE METHADONE SCREEN NEGATIVE (Neg); URINE OPIATE SCREEN NEGATIVE (Neg); URINE PHENCYCLIDINE SCREEN NEGATIVE (Neg)
--- NOTE | 2021-05-10 05:06 | NUR ---
PATIENT SLEPT THROUGH OUT THE NIGHT. NO OBVIOUS DISTRESS NOTED. OBSERVATION ONGOING.
--- NOTE | 2021-05-10 06:30 | NUR ---
PT. CARE ASSUMED FROM OFF GOING NURSE DAVIDA HICKMAN. PT. VISIBLE ON THE UNIT LYING IN BED RESTING QUIETLY NO DISTRESS NOTED.
--- NOTE | 2021-05-10 06:55 | NUR ---
ABNORMAL LAB VALUES DISCUSSED WITH ABISAI CONWAY RN. CHARGE NURSE STATES SHE WILL DISCUSS WITH EVANGELINA LIND.
--- NOTE | 2021-05-10 10:39 | NUR ---
PT. AAOX3 THIS SHIFT. DENIES ANY CURRENT HI OR A/V HALLUCINATIONS. PT. VERBALIZE SI WITH THOUGHTS TO JUMP OF BRIDGE. PT. DENIES ANY OTHER COMPLAINTS AT THIS TIME. PT. INFORMED THAT HE IS CURRENTLY ON 1798 AND WILL BE EVAL. BY THE [facility] CLINICIAN FOR DISPOSTION. PT. CALM AND COOPERATIVE DURING ASSESSMENT. STAFF WILL CONTINUE TO MONITOR FOR SAFETY.
--- NOTE | 2021-05-10 13:37 | NUR ---
[facility] CLINICIAN AT BED FOR EVAL.
--- NOTE | 2021-05-10 14:48 | NUR ---
PT. SCHEDULED FOR DISCHARGE TODAY AFTER DINNER. [facility] CLINICIAN WORKING ON COMMUNITY RESOURCES FOR THE PATIENT.
--- NOTE | 2021-05-10 17:59 | NUR ---
PT. SCHEDULED FOR DISCHARGE TO [facility]. PT. HAS RECEIVED ALL PERSONAL BELONGINGS AND DISCHARGE INSTRUCTIONS. PT. ESCORTED OFF UNIT BY SECURITY OFFICERS FOR PICK-UP BY [employer].
[2021-05-10 18:00] VITALS: BP 101/69
[2021-05-10] MEDS ORDERED: ferrous sulfate 325mg tablet PO SCH (20:00)
== END 2021-05-10 18:03 | disposition home or self-care (01) ==
LOC: ER 14:11
DX: R45.851 Suicidal ideations (principal); Z20.822 Contact with and (suspected) exposure to COVID-19; J44.9 Chronic obstructive pulmonary disease, unspecified; K21.9 Gastro-esophageal reflux disease without esophagitis; F41.9 Anxiety disorder, unspecified; F32.A Depression, unspecified; F12.90 Cannabis use, unspecified, uncomplicated; Z86.73 Personal history of transient ischemic attack (TIA), and cerebral infarction without residual deficits; Z86.69 Personal history of other diseases of the nervous system and sense organs; Z87.11 Personal history of peptic ulcer disease; Z86.2 Personal history of diseases of the blood and blood-forming organs and certain disorders involving the immune mechanism; Z86.14 Personal history of Methicillin resistant Staphylococcus aureus infection; Z90.49 Acquired absence of other specified parts of digestive tract; Z72.89 Other problems related to lifestyle; Z59.00 Homelessness unspecified; Z88.0 Allergy status to penicillin; Z88.6 Allergy status to analgesic agent; Z88.8 Allergy status to other drugs, medicaments and biological substances; Z88.1 Allergy status to other antibiotic agents; Z79.899 Other long term (current) drug therapy
CPT/HCPCS: 36415; 80053; 80305; 80320; 81003; 85008; 85025; 87635; 99285; C9803

== ENCOUNTER 2021-05-22 17:34 | Emergency (ER) | payer MEDICARE ==
[~2021-05-22] VITALS: Ht 190.5 cm; Wt 82.0 kg
[2021-05-22 17:50] VITALS: BP 103/66
[2021-05-22 18:13] LABS: CLARITY,URINE CLEAR (Clear); COLOR,URINE YELLOW (Yellow); GLUCOSE, URINE NEGATIVE (Neg); KETONES,URINE NEGATIVE (Neg); LEUKOCYTE ESTERASE ,URINE NEGATIVE (Neg); NITRITES, URINE NEGATIVE (Neg); OCCULT BLOOD,URINE NEGATIVE (Neg); PROTEIN,URINE NEGATIVE (Neg); UROBILINOGEN,URINE 0.2 E.U/dL (0.2-1.0)
[2021-05-22 18:15] LABS: UA COLLECTION TYPE OTHER
[2021-05-22 18:19] LABS: URINE AMPHETAMINE SCREEN NEGATIVE (Neg); URINE BARBITUATE SCREEN NEGATIVE (Neg); URINE BENZODIAZEPINES SCREEN NEGATIVE (Neg); URINE CANNABINOID SCREEN POSITIVE (Neg); URINE COCAINE SCREEN NEGATIVE (Neg); URINE METHADONE SCREEN NEGATIVE (Neg); URINE OPIATE SCREEN NEGATIVE (Neg); URINE PHENCYCLIDINE SCREEN NEGATIVE (Neg)
[2021-05-22 18:37] LABS: HEMOGLOBIN 7.4 g/dl (14.0-17.9); NEUTROPHILS # (AUTO) 2.4 X10'3 (1.8-7.7)
[2021-05-22 18:39] LABS: BASOPHILS % (AUTO) 0.8 % (0-1); EOSINOPHILS % (AUTO) 1.3 % (0-6); HEMATOCRIT 24.2 % (42.0-52.0); LYMPHOCYTES # (AUTO) 0.9 X10'3 (1.1-4.8); MEAN CORPUSCULAR HEMOGLOBIN 20.6 PG (27.0-31.0); MEAN CORPUSCULAR HGB CONC 30.6 g/dL (33.0-36.5); MEAN CORPUSCULAR VOLUME 67.5 FL (78-98); MEAN PLATELET VOLUME 8.3 FL (7.4-10.4); MONOCYTES # (AUTO) 0.4 X10'3 (0-0.9); MONOCYTES % (AUTO) 11.1 % (2-12); NEUTROPHILS % (AUTO) 63.8 % (42-75); PLATELET COUNT 162 X10'3 (140-440); RED BLOOD COUNT 3.59 X10'6 (4.70-6.10); RED CELL DISTRIBUTION WIDTH 18.4 % (11.5-14.5); WHITE BLOOD COUNT 3.7 X10'3 (4.5-11.0)
[2021-05-22 18:54] LABS: ALANINE AMINOTRANSFERASE 18 U/L (12-78); ALBUMIN 3.3 G/DL (3.4-5.0); ALKALINE PHOSPHATASE 94 IU/L (46-116); ANION GAP 9 (8-16); ASPARTATE AMINO TRANSFERASE 14 U/L (10-37); BILIRUBIN,TOTAL 0.2 MG/DL (0.1-1.0); BLOOD UREA NITROGEN 12 MG/DL (7-18); BUN/CREATININE RATIO 14.1 (5.4-32.0); CALCIUM 8.5 MG/DL (8.5-10.1); CHLORIDE 102 MMOL/L (99-107); CREATININE 0.85 MG/DL (0.60-1.10); GLUCOSE 94 MG/DL (70-104); POTASSIUM 4.3 MMOL/L (3.5-5.1); SODIUM 136 MMOL/L (135-145); TOTAL CARBON DIOXIDE 24.6 MMOL/L (24-32); TOTAL PROTEIN 6.7 G/DL (6.4-8.2); eGFR > 90 ML/MIN
[2021-05-22 18:56] LABS: ACETAMINOPHEN < 2.0 UG/ML (10-30)
[2021-05-23 00:49] LABS: ANISOCYTOSIS 2+; MICROCYTOSIS 2+; PLATELET ESTIMATE NORMAL
[2021-05-23 00:50] LABS: POLYCHROMASIA FEW
[2021-05-23 00:51] LABS: TARGET CELLS FEW; TEAR DROP CELLS FEW
== END 2021-05-22 18:59 | disposition home or self-care (01) ==
LOC: ER 17:35
DX: R45.851 Suicidal ideations (principal); I83.009 Varicose veins of unspecified lower extremity with ulcer of unspecified site; F60.3 Borderline personality disorder; F43.10 Post-traumatic stress disorder, unspecified; Z59.00 Homelessness unspecified; J44.9 Chronic obstructive pulmonary disease, unspecified; K74.60 Unspecified cirrhosis of liver; K21.9 Gastro-esophageal reflux disease without esophagitis; F12.90 Cannabis use, unspecified, uncomplicated; Z86.73 Personal history of transient ischemic attack (TIA), and cerebral infarction without residual deficits; Z87.19 Personal history of other diseases of the digestive system; Z87.11 Personal history of peptic ulcer disease; Z86.2 Personal history of diseases of the blood and blood-forming organs and certain disorders involving the immune mechanism; Z87.81 Personal history of (healed) traumatic fracture; Z86.19 Personal history of other infectious and parasitic diseases; Z86.14 Personal history of Methicillin resistant Staphylococcus aureus infection; Z90.49 Acquired absence of other specified parts of digestive tract; Z98.84 Bariatric surgery status; Z72.89 Other problems related to lifestyle; Z88.0 Allergy status to penicillin; Z88.1 Allergy status to other antibiotic agents; Z88.8 Allergy status to other drugs, medicaments and biological substances; Z79.899 Other long term (current) drug therapy
CPT/HCPCS: 36415; 80053; 80305; 80329; 81003; 85008; 85025; 99283

== ENCOUNTER 2021-06-08 08:42 | Emergency (ER) | payer MEDICARE ==
[~2021-06-08] VITALS: Ht 190.5 cm; Wt 80.9 kg
[~2021-06-08 08:42] MED LIST changes: -IBUP-1984 PO
[2021-06-08] MEDS ORDERED: ketorolac trometh inj. 60 MG/2 ML VIAL IM ONE (10:45)
[2021-06-08 10:58] VITALS: BP 137/84
== END 2021-06-08 11:00 | disposition home or self-care (01) ==
LOC: ER 08:43
DX: S46.912A Strain of unspecified muscle, fascia and tendon at shoulder and upper arm level, left arm, initial encounter (principal); M25.512 Pain in left shoulder; J44.9 Chronic obstructive pulmonary disease, unspecified; K21.9 Gastro-esophageal reflux disease without esophagitis; F41.9 Anxiety disorder, unspecified; F32.A Depression, unspecified; F12.90 Cannabis use, unspecified, uncomplicated; Z86.73 Personal history of transient ischemic attack (TIA), and cerebral infarction without residual deficits; Z86.69 Personal history of other diseases of the nervous system and sense organs; Z87.11 Personal history of peptic ulcer disease; Z86.2 Personal history of diseases of the blood and blood-forming organs and certain disorders involving the immune mechanism; Z86.14 Personal history of Methicillin resistant Staphylococcus aureus infection; Z90.49 Acquired absence of other specified parts of digestive tract; Z98.890 Other specified postprocedural states; Z72.89 Other problems related to lifestyle; Z59.00 Homelessness unspecified; Z88.6 Allergy status to analgesic agent; Z88.0 Allergy status to penicillin; Z88.1 Allergy status to other antibiotic agents; Z88.8 Allergy status to other drugs, medicaments and biological substances; Z79.899 Other long term (current) drug therapy; W10.9XXA Fall (on) (from) unspecified stairs and steps, initial encounter; Y93.89 Activity, other specified; Y92.89 Other specified places as the place of occurrence of the external cause; Y99.8 Other external cause status
CPT/HCPCS: 73000; 96372; 99283; J1885

== ENCOUNTER 2021-06-14 12:29 | Emergency (ER) | payer MEDICARE ==
[~2021-06-14] VITALS: Ht 190.5 cm; Wt 82.8 kg
== END 2021-06-14 15:07 | disposition home or self-care (01) ==
LOC: ER 12:30
DX: I87.2 Venous insufficiency (chronic) (peripheral) (principal); L24.9 Irritant contact dermatitis, unspecified cause; I51.9 Heart disease, unspecified; J44.9 Chronic obstructive pulmonary disease, unspecified; K21.9 Gastro-esophageal reflux disease without esophagitis; D64.9 Anemia, unspecified; F12.10 Cannabis abuse, uncomplicated; Z59.00 Homelessness unspecified; Z88.6 Allergy status to analgesic agent; Z88.0 Allergy status to penicillin; Z88.8 Allergy status to other drugs, medicaments and biological substances; Z88.5 Allergy status to narcotic agent
CPT/HCPCS: 99282

== ENCOUNTER 2021-07-05 10:25 | Emergency (ER) | payer MEDICARE ==
[~2021-07-05] VITALS: Ht 193 cm; Wt 82.7 kg
[2021-07-05 10:30] VITALS: BP 108/71
[2021-07-05] MEDS ORDERED: normal saline 1000ML IV soln IVB ONE (11:20)
[2021-07-05] MEDS ORDERED: ondansetron/PF 4mg/2ml inj IV ONE (11:20)
[2021-07-05 11:33] LABS: BASOPHILS % (AUTO) 1.2 % (0-1); EOSINOPHILS % (AUTO) 1.5 % (0-6); HEMATOCRIT 25.7 % (42.0-52.0); HEMOGLOBIN 7.7 g/dl (14.0-17.9); LYMPHOCYTES # (AUTO) 0.5 X10'3 (1.1-4.8); LYMPHOCYTES % (AUTO) 19.9 % (21-51); MEAN CORPUSCULAR HEMOGLOBIN 19.5 PG (27.0-31.0); MEAN CORPUSCULAR VOLUME 65.2 FL (78-98); MEAN PLATELET VOLUME 8.3 FL (7.4-10.4); MONOCYTES # (AUTO) 0.3 X10'3 (0-0.9); MONOCYTES % (AUTO) 10.6 % (2-12); NEUTROPHILS # (AUTO) 1.7 X10'3 (1.8-7.7); NEUTROPHILS % (AUTO) 66.8 % (42-75); PLATELET COUNT 139 X10'3 (140-440); RED BLOOD COUNT 3.94 X10'6 (4.70-6.10); RED CELL DISTRIBUTION WIDTH 19.5 % (11.5-14.5); WHITE BLOOD COUNT 2.5 X10'3 (4.5-11.0)
[2021-07-05 11:49] LABS: CLARITY,URINE SLIGHTLY CLOUDY (Clear); COLOR,URINE YELLOW (Yellow); GLUCOSE, URINE NEGATIVE (Neg); KETONES,URINE NEGATIVE (Neg); LEUKOCYTE ESTERASE ,URINE NEGATIVE (Neg); NITRITES, URINE NEGATIVE (Neg); OCCULT BLOOD,URINE NEGATIVE (Neg); PROTEIN,URINE NEGATIVE (Neg); UROBILINOGEN,URINE 0.2 E.U/dL (0.2-1.0)
[2021-07-05 11:49] LABS: ALANINE AMINOTRANSFERASE 29 U/L (12-78); ALBUMIN 3.4 G/DL (3.4-5.0); ALBUMIN/GLOBULIN RATIO 1.1 (1.1-1.5); ALKALINE PHOSPHATASE 118 IU/L (46-116); ANION GAP 5 (8-16); ASPARTATE AMINO TRANSFERASE 25 U/L (10-37); BILIRUBIN,TOTAL 0.3 MG/DL (0.1-1.0); BLOOD UREA NITROGEN 19 MG/DL (7-18); BUN/CREATININE RATIO 29.2 (5.4-32.0); CALCIUM 7.9 MG/DL (8.5-10.1); CHLORIDE 107 MMOL/L (99-107); CREATININE 0.65 MG/DL (0.60-1.10); GLUCOSE 94 MG/DL (70-104); LIPASE 53 U/L (73-393); POTASSIUM 3.5 MMOL/L (3.5-5.1); SODIUM 138 MMOL/L (135-145); TOTAL CARBON DIOXIDE 26.2 MMOL/L (24-32); TOTAL PROTEIN 6.4 G/DL (6.4-8.2); eGFR > 90 ML/MIN
[2021-07-05 11:53] LABS: ANISOCYTOSIS 2+; LARGE PLATELETS FEW; MICROCYTOSIS 2+; PLATELET ESTIMATE DECREASED; TOTAL CELLS COUNTED 100
[2021-07-05 11:55] LABS: UA COLLECTION TYPE NON-SPECIFIED
[2021-07-05 12:00] LABS: CAL OXALATE CRYSTALS FEW /HPF (NEGATIVE); MUCUS STRANDS MODERATE /LPF (Neg); SQUAMOUS EPITHELIAL CELL,UR MODERATE /LPF (FEW)
[2021-07-05 12:04] LABS: BACTERIA,URINE FEW /HPF (Neg); RBC,URINE 0-2 /HPF (0-2); WBC,URINE 0-4 /HPF (0-4)
[2021-07-05 12:08] LABS: URINE AMPHETAMINE SCREEN NEGATIVE (Neg); URINE BARBITUATE SCREEN NEGATIVE (Neg); URINE BENZODIAZEPINES SCREEN NEGATIVE (Neg); URINE CANNABINOID SCREEN POSITIVE (Neg); URINE COCAINE SCREEN NEGATIVE (Neg); URINE METHADONE SCREEN NEGATIVE (Neg); URINE OPIATE SCREEN NEGATIVE (Neg); URINE PHENCYCLIDINE SCREEN NEGATIVE (Neg)
[2021-07-05] MEDS ORDERED: FERR-28 PO (13:35)
[2021-07-05 15:37] LABS: OCCULT BLOOD STOOL NEGATIVE (Neg)
== END 2021-07-05 14:24 | disposition home or self-care (01) ==
LOC: ER 10:27
DX: D50.9 Iron deficiency anemia, unspecified (principal); R19.7 Diarrhea, unspecified; R50.9 Fever, unspecified; J44.9 Chronic obstructive pulmonary disease, unspecified; K21.9 Gastro-esophageal reflux disease without esophagitis; F41.9 Anxiety disorder, unspecified; F32.A Depression, unspecified; F17.200 Nicotine dependence, unspecified, uncomplicated; F12.90 Cannabis use, unspecified, uncomplicated; Z86.73 Personal history of transient ischemic attack (TIA), and cerebral infarction without residual deficits; Z86.69 Personal history of other diseases of the nervous system and sense organs; Z87.11 Personal history of peptic ulcer disease; Z86.2 Personal history of diseases of the blood and blood-forming organs and certain disorders involving the immune mechanism; Z86.14 Personal history of Methicillin resistant Staphylococcus aureus infection; Z90.49 Acquired absence of other specified parts of digestive tract; Z98.890 Other specified postprocedural states; Z72.89 Other problems related to lifestyle; Z59.00 Homelessness unspecified; Z88.6 Allergy status to analgesic agent; Z88.0 Allergy status to penicillin; Z88.1 Allergy status to other antibiotic agents; Z88.8 Allergy status to other drugs, medicaments and biological substances; Z79.899 Other long term (current) drug therapy
CPT/HCPCS: 80053; 80305; 81001; 82272; 83690; 85007; 85025; 96361; 96374; 99284; J2405; J7030

== ENCOUNTER 2021-07-07 15:35 | Emergency (ER) | payer MEDICARE ==
[~2021-07-07] VITALS: Ht 193 cm; Wt 84.0 kg
[~2021-07-07 15:35] MED LIST changes: +FERR-28 PO
[2021-07-07 17:09] LABS: BASOPHILS % (AUTO) 0.5 % (0-1); EOSINOPHILS # (AUTO) 0.1 X10'3 (0-0.9); EOSINOPHILS % (AUTO) 1.8 % (0-6); HEMATOCRIT 25.7 % (42.0-52.0); HEMOGLOBIN 7.6 g/dl (14.0-17.9); LYMPHOCYTES # (AUTO) 0.6 X10'3 (1.1-4.8); LYMPHOCYTES % (AUTO) 18.4 % (21-51); MEAN CORPUSCULAR HEMOGLOBIN 18.9 PG (27.0-31.0); MEAN CORPUSCULAR HGB CONC 29.5 g/dL (33.0-36.5); MEAN CORPUSCULAR VOLUME 64.2 FL (78-98); MEAN PLATELET VOLUME 8.7 FL (7.4-10.4); MONOCYTES # (AUTO) 0.3 X10'3 (0-0.9); MONOCYTES % (AUTO) 8.6 % (2-12); NEUTROPHILS # (AUTO) 2.3 X10'3 (1.8-7.7); NEUTROPHILS % (AUTO) 70.7 % (42-75); PLATELET COUNT 150 X10'3 (140-440); WHITE BLOOD COUNT 3.2 X10'3 (4.5-11.0)
[2021-07-07 17:19] LABS: ALANINE AMINOTRANSFERASE 27 U/L (12-78); ALBUMIN 3.3 G/DL (3.4-5.0); ALKALINE PHOSPHATASE 115 IU/L (46-116); ANION GAP 7 (8-16); ASPARTATE AMINO TRANSFERASE 23 U/L (10-37); BILIRUBIN,TOTAL 0.3 MG/DL (0.1-1.0); BLOOD UREA NITROGEN 21 MG/DL (7-18); BUN/CREATININE RATIO 27.3 (5.4-32.0); CHLORIDE 110 MMOL/L (99-107); CREATININE 0.77 MG/DL (0.60-1.10); GLUCOSE 113 MG/DL (70-104); LIPASE 58 U/L (73-393); POTASSIUM 4.2 MMOL/L (3.5-5.1); SODIUM 145 MMOL/L (135-145); TOTAL CARBON DIOXIDE 27.6 MMOL/L (24-32); TOTAL PROTEIN 6.5 G/DL (6.4-8.2); eGFR > 90 ML/MIN
[2021-07-07 17:58] LABS: ANISOCYTOSIS 2+; HYPOCHROMASIA 1+; MICROCYTOSIS 2+; PLATELET ESTIMATE NORMAL; TEAR DROP CELLS FEW
[2021-07-07 22:35] VITALS: BP 99/67
[2021-07-08 05:51] LABS: OCCULT BLOOD STOOL NEGATIVE (Neg)
== END 2021-07-08 00:50 | disposition home or self-care (01) ==
LOC: ER 15:35
DX: D64.9 Anemia, unspecified (principal); K92.1 Melena; R11.2 Nausea with vomiting, unspecified; J44.9 Chronic obstructive pulmonary disease, unspecified; K21.9 Gastro-esophageal reflux disease without esophagitis; F41.9 Anxiety disorder, unspecified; F32.A Depression, unspecified; F12.90 Cannabis use, unspecified, uncomplicated; Z86.69 Personal history of other diseases of the nervous system and sense organs; Z86.73 Personal history of transient ischemic attack (TIA), and cerebral infarction without residual deficits; Z87.11 Personal history of peptic ulcer disease; Z86.2 Personal history of diseases of the blood and blood-forming organs and certain disorders involving the immune mechanism; Z86.14 Personal history of Methicillin resistant Staphylococcus aureus infection; Z90.49 Acquired absence of other specified parts of digestive tract; Z98.890 Other specified postprocedural states; Z72.89 Other problems related to lifestyle; Z59.00 Homelessness unspecified; Z88.0 Allergy status to penicillin; Z88.1 Allergy status to other antibiotic agents; Z88.6 Allergy status to analgesic agent; Z79.899 Other long term (current) drug therapy
CPT/HCPCS: 36415; 80053; 82272; 83690; 85008; 85025; 99284

== ENCOUNTER 2021-07-21 12:52 | Emergency (ER) | payer MEDICARE ==
[~2021-07-21] VITALS: Ht 193 cm; Wt 90.9 kg
[2021-07-21 13:31] VITALS: BP 118/79
[2021-07-21] MEDS ORDERED: ibuprofen tablet 400 MG TABLET PO ONE (14:25)
== END 2021-07-21 15:24 | disposition home or self-care (01) ==
LOC: ER 12:53
DX: G89.29 Other chronic pain (principal); M79.604 Pain in right leg; M79.605 Pain in left leg; K21.9 Gastro-esophageal reflux disease without esophagitis; J44.9 Chronic obstructive pulmonary disease, unspecified; D64.9 Anemia, unspecified; F31.9 Bipolar disorder, unspecified; F12.10 Cannabis abuse, uncomplicated; Z79.899 Other long term (current) drug therapy; Z86.14 Personal history of Methicillin resistant Staphylococcus aureus infection; Z59.00 Homelessness unspecified; Z88.6 Allergy status to analgesic agent; Z88.0 Allergy status to penicillin; Z88.1 Allergy status to other antibiotic agents; Z88.5 Allergy status to narcotic agent
CPT/HCPCS: 99284

== ENCOUNTER 2021-07-24 16:30 | Emergency (ER) | payer MEDICARE | END 2021-07-24 17:59 | disposition left against medical advice (07) | LOC: ER 16:31 | DX: Z00.8 Encounter for other general examination (principal); Z53.21 Procedure and treatment not carried out due to patient leaving prior to being seen by health care provider ==

== ENCOUNTER 2021-07-31 18:06 | Emergency (ER) | payer MEDICARE ==
[~2021-07-31] VITALS: Ht 190.5 cm; Wt 84.1 kg
[2021-07-31 19:00] LABS: BASOPHILS % (AUTO) 0.9 % (0-1); EOSINOPHILS # (AUTO) 0.1 X10'3 (0-0.9); EOSINOPHILS % (AUTO) 2.1 % (0-6); HEMATOCRIT 27.1 % (42.0-52.0); LYMPHOCYTES # (AUTO) 0.7 X10'3 (1.1-4.8); LYMPHOCYTES % (AUTO) 19.5 % (21-51); MEAN CORPUSCULAR HEMOGLOBIN 19.1 PG (27.0-31.0); MEAN CORPUSCULAR HGB CONC 29.7 g/dL (33.0-36.5); MEAN CORPUSCULAR VOLUME 64.4 FL (78-98); MEAN PLATELET VOLUME 8.8 FL (7.4-10.4); MONOCYTES # (AUTO) 0.4 X10'3 (0-0.9); MONOCYTES % (AUTO) 10.2 % (2-12); NEUTROPHILS # (AUTO) 2.3 X10'3 (1.8-7.7); NEUTROPHILS % (AUTO) 67.3 % (42-75); PLATELET COUNT 208 X10'3 (140-440); RED BLOOD COUNT 4.22 X10'6 (4.70-6.10); RED CELL DISTRIBUTION WIDTH 21.4 % (11.5-14.5); WHITE BLOOD COUNT 3.5 X10'3 (4.5-11.0)
[2021-07-31 19:24] LABS: ALANINE AMINOTRANSFERASE 22 U/L (12-78); ALBUMIN 3.2 G/DL (3.4-5.0); ALBUMIN/GLOBULIN RATIO 0.9 (1.1-1.5); ALKALINE PHOSPHATASE 116 IU/L (46-116); ANION GAP 9 (8-16); ASPARTATE AMINO TRANSFERASE 24 U/L (10-37); BILIRUBIN,TOTAL 0.2 MG/DL (0.1-1.0); BLOOD UREA NITROGEN 24 MG/DL (7-18); CALCIUM 8.3 MG/DL (8.5-10.1); CHLORIDE 107 MMOL/L (99-107); GLUCOSE 99 MG/DL (70-104); POTASSIUM 4.4 MMOL/L (3.5-5.1); SODIUM 143 MMOL/L (135-145); TOTAL PROTEIN 6.8 G/DL (6.4-8.2); eGFR > 90 ML/MIN
[2021-07-31 19:34] LABS: ANISOCYTOSIS 3+; MICROCYTOSIS 2+; PLATELET ESTIMATE NORMAL
[2021-07-31 19:36] LABS: HYPOCHROMASIA 2+; TARGET CELLS FEW
[2021-08-01 00:35] LABS: CLARITY,URINE CLEAR (Clear); COLOR,URINE YELLOW (Yellow); GLUCOSE, URINE NEGATIVE (Neg); KETONES,URINE NEGATIVE (Neg); LEUKOCYTE ESTERASE ,URINE NEGATIVE (Neg); NITRITES, URINE NEGATIVE (Neg); OCCULT BLOOD,URINE NEGATIVE (Neg); PROTEIN,URINE NEGATIVE (Neg); UA COLLECTION TYPE CLN CATCH MIDSTREAM; UROBILINOGEN,URINE 0.2 E.U/dL (0.2-1.0)
[2021-08-01] MEDS ORDERED: normal saline 1000ML IV soln IVB ONE (00:40)
[2021-08-01] MEDS ORDERED: ondansetron/PF 4mg/2ml inj IV ONE (00:40)
[2021-08-01] MEDS: morphine 4 MG/ML inj SYRINge IV PRN ×2 (00:58→02:27)
--- NOTE | 2021-08-01 01:52 | NUR ---
PT IS NOT CURRENTLY IN PAIN. PT IS RESTING COMFORTABLY IN HIS BED W/O ANY NEEDS.
[2021-08-01 02:11] VITALS: BP 120/77
== END 2021-08-01 02:27 | disposition home or self-care (01) ==
LOC: ER 18:07
DX: R19.7 Diarrhea, unspecified (principal); R10.84 Generalized abdominal pain; J44.9 Chronic obstructive pulmonary disease, unspecified; K21.9 Gastro-esophageal reflux disease without esophagitis; F41.9 Anxiety disorder, unspecified; F32.A Depression, unspecified; F12.90 Cannabis use, unspecified, uncomplicated; F17.200 Nicotine dependence, unspecified, uncomplicated; Z86.73 Personal history of transient ischemic attack (TIA), and cerebral infarction without residual deficits; Z86.69 Personal history of other diseases of the nervous system and sense organs; Z87.11 Personal history of peptic ulcer disease; Z86.2 Personal history of diseases of the blood and blood-forming organs and certain disorders involving the immune mechanism; Z86.14 Personal history of Methicillin resistant Staphylococcus aureus infection; Z90.49 Acquired absence of other specified parts of digestive tract; Z98.890 Other specified postprocedural states; Z72.89 Other problems related to lifestyle; Z59.00 Homelessness unspecified; Z88.6 Allergy status to analgesic agent; Z88.0 Allergy status to penicillin; Z88.1 Allergy status to other antibiotic agents; Z88.8 Allergy status to other drugs, medicaments and biological substances; Z79.899 Other long term (current) drug therapy
CPT/HCPCS: 80053; 81003; 85008; 85025; 96374; 96375; 96376; 99284; J2270; J2405; J7030

== ENCOUNTER 2021-08-18 14:33 | Emergency (ER) | payer MEDICARE ==
[~2021-08-18] VITALS: Ht 190.5 cm; Wt 81.0 kg
[2021-08-18 15:03] VITALS: BP 118/71
--- NOTE | 2021-08-18 15:11 | NUR ---
pt being evaluated by provider,
[2021-08-18] MEDS ORDERED: NAPR-56 PO (15:18)
== END 2021-08-18 20:22 | disposition home or self-care (01) ==
LOC: ER 14:35
DX: G89.29 Other chronic pain (principal); M79.661 Pain in right lower leg; M79.662 Pain in left lower leg; M25.572 Pain in left ankle and joints of left foot; R22.43 Localized swelling, mass and lump, lower limb, bilateral; M54.50 Low back pain, unspecified; J44.9 Chronic obstructive pulmonary disease, unspecified; K21.9 Gastro-esophageal reflux disease without esophagitis; F12.90 Cannabis use, unspecified, uncomplicated; Z87.19 Personal history of other diseases of the digestive system; Z86.14 Personal history of Methicillin resistant Staphylococcus aureus infection; Z86.19 Personal history of other infectious and parasitic diseases; Z87.81 Personal history of (healed) traumatic fracture; Z90.49 Acquired absence of other specified parts of digestive tract; Z98.84 Bariatric surgery status; Z59.00 Homelessness unspecified; Z87.11 Personal history of peptic ulcer disease; Z79.899 Other long term (current) drug therapy; Z88.0 Allergy status to penicillin; Z88.1 Allergy status to other antibiotic agents; Z88.8 Allergy status to other drugs, medicaments and biological substances
CPT/HCPCS: 99282

== ENCOUNTER 2021-08-22 07:35 | Emergency (ER) | payer MEDICARE ==
[~2021-08-22] VITALS: Ht 193 cm; Wt 84.1 kg
[~2021-08-22 07:35] MED LIST changes: +NAPR-56 PO
[2021-08-22 07:48] VITALS: BP 118/79
[2021-08-22] MEDS ORDERED: mupirocin 2% ointment 22GM TP ONE (09:30)
[2021-08-22] MEDS ORDERED: TETanus/Pertussis (Acell)/Diphther VAC/PF (Tdap-Adult) 0.5ml syringe IMVAC ONE (09:30)
[2021-08-22] MEDS ORDERED: LIDOcaine 1% W/epiNEPHrine 1:200,000 10ml vial IJ ONE (09:30)
[2021-08-22] MEDS ORDERED: sulfamethoxazole/trimethoprim DS (800/160mg) tablet PO ONE (09:30)
[2021-08-22] MEDS ORDERED: SULF1TAB49 PO (10:17)
== END 2021-08-22 10:22 | disposition home or self-care (01) ==
LOC: ER 07:36
DX: S69.82XD Other specified injuries of left wrist, hand and finger(s), subsequent encounter (principal); L02.01 Cutaneous abscess of face; J44.9 Chronic obstructive pulmonary disease, unspecified; K21.9 Gastro-esophageal reflux disease without esophagitis; F31.9 Bipolar disorder, unspecified; Z59.00 Homelessness unspecified; Z87.19 Personal history of other diseases of the digestive system; Z88.6 Allergy status to analgesic agent; Z88.0 Allergy status to penicillin; Z88.1 Allergy status to other antibiotic agents; Z88.5 Allergy status to narcotic agent; Z79.899 Other long term (current) drug therapy; X58.XXXD Exposure to other specified factors, subsequent encounter
CPT/HCPCS: 29130; 90471; 90715; 99283

== ENCOUNTER 2021-08-30 19:05 | Emergency (ER) | payer MEDICARE ==
[~2021-08-30] VITALS: Ht 190.5 cm; Wt 81.8 kg
[~2021-08-30 19:05] MED LIST changes: +SULF1TAB49 PO
[2021-08-31] MEDS ORDERED: morphine 10mg/ml inj. IV ONE (03:35)
[2021-08-31 05:55] VITALS: BP 128/72
== END 2021-08-31 05:23 | disposition home or self-care (01) ==
LOC: ER 19:06
DX: T67.5XXA Heat exhaustion, unspecified, initial encounter (principal); Z20.822 Contact with and (suspected) exposure to COVID-19; Z76.5 Malingerer [conscious simulation]; J44.9 Chronic obstructive pulmonary disease, unspecified; K21.9 Gastro-esophageal reflux disease without esophagitis; D64.9 Anemia, unspecified; F31.9 Bipolar disorder, unspecified; F17.200 Nicotine dependence, unspecified, uncomplicated; F12.10 Cannabis abuse, uncomplicated; Z56.0 Unemployment, unspecified; Z88.6 Allergy status to analgesic agent; Z88.0 Allergy status to penicillin; Z88.1 Allergy status to other antibiotic agents; Z88.5 Allergy status to narcotic agent; Z79.899 Other long term (current) drug therapy
CPT/HCPCS: 87811; 96374; 99283; J2274

== ENCOUNTER 2021-09-03 22:25 | Emergency (ER) | payer MEDICARE ==
[~2021-09-03] VITALS: Ht 193 cm; Wt 84.1 kg
[~2021-09-03 22:25] MED LIST changes: -SULF1TAB49 PO
[2021-09-04 04:09] VITALS: BP 132/76
[2021-09-04] MEDS ORDERED: NO HOME MEDS (20:03)
== END 2021-09-04 10:02 | disposition left against medical advice (07) ==
LOC: ER 22:26
DX: T67.5XXA Heat exhaustion, unspecified, initial encounter (principal); Z53.21 Procedure and treatment not carried out due to patient leaving prior to being seen by health care provider

== ENCOUNTER 2021-09-04 13:48 | Emergency (ER) | payer MEDICARE ==
[~2021-09-04] VITALS: Ht 185.4 cm; Wt 85.0 kg
[2021-09-04 15:08] LABS: BASOPHILS % (AUTO) 0.9 % (0-1); EOSINOPHILS # (AUTO) 0.1 X10'3 (0-0.9); HEMATOCRIT 25.8 % (42.0-52.0); LYMPHOCYTES # (AUTO) 0.8 X10'3 (1.1-4.8); LYMPHOCYTES % (AUTO) 19.6 % (21-51); MEAN CORPUSCULAR HEMOGLOBIN 19.8 PG (27.0-31.0); MEAN CORPUSCULAR HGB CONC 30.9 g/dL (33.0-36.5); MEAN CORPUSCULAR VOLUME 64.3 FL (78-98); MEAN PLATELET VOLUME 8.9 FL (7.4-10.4); MONOCYTES # (AUTO) 0.5 X10'3 (0-0.9); MONOCYTES % (AUTO) 12.2 % (2-12); NEUTROPHILS # (AUTO) 2.6 X10'3 (1.8-7.7); NEUTROPHILS % (AUTO) 65.3 % (42-75); PLATELET COUNT 181 X10'3 (140-440); RED BLOOD COUNT 4.01 X10'6 (4.70-6.10); RED CELL DISTRIBUTION WIDTH 19.8 % (11.5-14.5)
[2021-09-04 15:13] LABS: ALANINE AMINOTRANSFERASE 33 U/L (12-78); ALBUMIN 3.5 G/DL (3.4-5.0); ALBUMIN/GLOBULIN RATIO 0.9 (1.1-1.5); ALKALINE PHOSPHATASE 132 IU/L (46-116); ANION GAP 7 (8-16); ASPARTATE AMINO TRANSFERASE 27 U/L (10-37); BILIRUBIN,TOTAL 0.3 MG/DL (0.1-1.0); BLOOD UREA NITROGEN 19 MG/DL (7-18); BUN/CREATININE RATIO 29.7 (5.4-32.0); CALCIUM 8.5 MG/DL (8.5-10.1); CHLORIDE 106 MMOL/L (99-107); CREATININE 0.64 MG/DL (0.60-1.10); GLUCOSE 98 MG/DL (70-104); SODIUM 138 MMOL/L (135-145); TOTAL CARBON DIOXIDE 24.8 MMOL/L (24-32); TOTAL PROTEIN 7.2 G/DL (6.4-8.2); eGFR > 90 ML/MIN
[2021-09-04 15:15] LABS: ETHANOL < 0.010 GM/DL (0.0-0.010)
--- NOTE | 2021-09-04 16:27 | NUR ---
pts 5150 is not valid as it is not signed. alison kimball
[2021-09-04 17:10] LABS: ANISOCYTOSIS 2+; HYPOCHROMASIA 3+; MICROCYTOSIS 2+; PLATELET ESTIMATE NORMAL; TARGET CELLS FEW
[2021-09-04 17:11] LABS: ELLIPTOCYTES FEW
--- NOTE | 2021-09-04 19:00 | NUR ---
The patient has been sleeping on his bed but did awake for the evening assessment. He was cooperative but sleepy. He is homeless in the [facility] and is on [address]. He was asked if he was suicidal and he replied, "In a way I am and in a way I'm not" He denies psychotic symptoms. He reports a history of ADHD and depression. He reports he takes not prescribed medications. When asked about drug and alchohol use he stated that he uses THC. He ate dinner and immediately went back to sleep. He is aware that a urine sample is needed.
[2021-09-04] MEDS ORDERED: NO HOME MEDS (20:03)
--- NOTE | 2021-09-04 21:59 | NUR ---
The patient appears to be sleeping
--- NOTE | 2021-09-04 23:59 | NUR ---
The patient appears to be sleeping
--- NOTE | 2021-09-05 01:14 | NUR ---
The patient appears to be sleeping
--- NOTE | 2021-09-05 02:21 | NUR ---
The patient appears to be sleeping
--- NOTE | 2021-09-05 02:43 | NUR ---
The patient up to use the bathroom but did not give a urine sample. He was again reminded that a urine sample was needed.
--- NOTE | 2021-09-05 03:59 | NUR ---
The patient appears to be sleeping
[2021-09-05 04:52] VITALS: BP 108/70
[2021-09-05 05:09] LABS: CLARITY,URINE CLEAR (Clear); COLOR,URINE YELLOW (Yellow); GLUCOSE, URINE NEGATIVE (Neg); KETONES,URINE NEGATIVE (Neg); LEUKOCYTE ESTERASE ,URINE NEGATIVE (Neg); NITRITES, URINE NEGATIVE (Neg); OCCULT BLOOD,URINE NEGATIVE (Neg); PROTEIN,URINE NEGATIVE (Neg)
[2021-09-05 05:11] LABS: UA COLLECTION TYPE CLN CATCH MIDSTREAM
[2021-09-05 05:16] LABS: URINE AMPHETAMINE SCREEN POSITIVE (Neg); URINE BARBITUATE SCREEN NEGATIVE (Neg); URINE BENZODIAZEPINES SCREEN NEGATIVE (Neg); URINE CANNABINOID SCREEN POSITIVE (Neg); URINE COCAINE SCREEN NEGATIVE (Neg); URINE METHADONE SCREEN NEGATIVE (Neg); URINE OPIATE SCREEN NEGATIVE (Neg); URINE PHENCYCLIDINE SCREEN NEGATIVE (Neg)
--- NOTE | 2021-09-05 05:21 | NUR ---
PACKET SENT TO [facility]
== END 2021-09-05 12:32 | disposition home or self-care (01) ==
LOC: ER 13:49
DX: R45.851 Suicidal ideations (principal); Z20.822 Contact with and (suspected) exposure to COVID-19; D64.9 Anemia, unspecified; K21.9 Gastro-esophageal reflux disease without esophagitis; J44.9 Chronic obstructive pulmonary disease, unspecified; F31.9 Bipolar disorder, unspecified; Z88.0 Allergy status to penicillin; Z88.1 Allergy status to other antibiotic agents; Z88.5 Allergy status to narcotic agent; Z86.14 Personal history of Methicillin resistant Staphylococcus aureus infection; Z87.19 Personal history of other diseases of the digestive system
CPT/HCPCS: 36415; 80053; 80305; 80320; 81003; 85008; 85025; 87811; 99285

== ENCOUNTER 2021-12-10 06:06 | Emergency (ER) | payer MEDICARE, MEDICAID ==
[~2021-12-10] VITALS: Ht 172.7 cm; Wt 81.0 kg
[~2021-12-10 06:06] MED LIST changes: -FERR-28 PO; -NAPR-56 PO; -NAPR220T67 PO; +NO HOME MEDS
--- NOTE | 2021-12-10 07:42 | NUR ---
ATTEMPTED IV X1, UNSUCCESSFUL BUT ABLE TO DRAW LAB FROM RIGHT AC.
[2021-12-10 09:20] VITALS: BP 135/88
== END 2021-12-10 09:33 | disposition home or self-care (01) ==
LOC: ER 06:07
DX: M79.605 Pain in left leg (principal); M79.604 Pain in right leg; I87.8 Other specified disorders of veins; Z59.02 Unsheltered homelessness; J44.9 Chronic obstructive pulmonary disease, unspecified; K21.9 Gastro-esophageal reflux disease without esophagitis; F32.9 Major depressive disorder, single episode, unspecified; F41.9 Anxiety disorder, unspecified; F17.200 Nicotine dependence, unspecified, uncomplicated; F12.90 Cannabis use, unspecified, uncomplicated; Z59.00 Homelessness unspecified; Z90.49 Acquired absence of other specified parts of digestive tract; Z86.73 Personal history of transient ischemic attack (TIA), and cerebral infarction without residual deficits
CPT/HCPCS: 99283

== ENCOUNTER 2022-01-07 13:04 | Emergency (ER) | payer MEDICARE, MEDICAID ==
[~2022-01-07] VITALS: Ht 190.5 cm; Wt 83.6 kg
[2022-01-07 14:42] VITALS: BP 121/76
== END 2022-01-07 18:25 | disposition home or self-care (01) ==
LOC: ER 13:05
DX: M25.521 Pain in right elbow (principal); J44.9 Chronic obstructive pulmonary disease, unspecified; K21.9 Gastro-esophageal reflux disease without esophagitis; F12.90 Cannabis use, unspecified, uncomplicated; Z88.0 Allergy status to penicillin; Z88.1 Allergy status to other antibiotic agents; Z88.6 Allergy status to analgesic agent; Z88.8 Allergy status to other drugs, medicaments and biological substances; Z90.49 Acquired absence of other specified parts of digestive tract; Z59.00 Homelessness unspecified
CPT/HCPCS: 73080; 99283

== ENCOUNTER 2022-01-21 11:02 | Emergency (ER) | payer MEDICARE, MEDICAID ==
[~2022-01-21] VITALS: Ht 190.5 cm; Wt 105.0 kg
[2022-01-21] MEDS ORDERED: albuterol 2.5 MG/3 ML nebule NEB ONE (13:40)
[2022-01-21] MEDS ORDERED: dexamethasone sod phosphate 10mg/ml inj PO STA (13:40)
[2022-01-21] MEDS ORDERED: normal saline 1000ML IV soln IVB ONE (13:45)
[2022-01-21] MEDS ORDERED: ondansetron 4mg rapidly disintigrating tab PO ONE (13:45)
[2022-01-21 14:03] LABS: BASOPHILS % (AUTO) 0.3 % (0-1); EOSINOPHILS % (AUTO) 0.6 % (0-6); HEMOGLOBIN 8.4 g/dl (14.0-17.9); LYMPHOCYTES # (AUTO) 0.5 X10'3 (1.1-4.8); LYMPHOCYTES % (AUTO) 10.8 % (21-51); MEAN CORPUSCULAR HEMOGLOBIN 20.2 PG (27.0-31.0); MEAN CORPUSCULAR VOLUME 67.3 FL (78-98); MEAN PLATELET VOLUME 8.6 FL (7.4-10.4); MONOCYTES # (AUTO) 0.7 X10'3 (0-0.9); MONOCYTES % (AUTO) 14.8 % (2-12); NEUTROPHILS # (AUTO) 3.4 X10'3 (1.8-7.7); NEUTROPHILS % (AUTO) 73.5 % (42-75); PLATELET COUNT 166 X10'3 (140-440); RED BLOOD COUNT 4.16 X10'6 (4.70-6.10); RED CELL DISTRIBUTION WIDTH 18.8 % (11.5-14.5); WHITE BLOOD COUNT 4.6 X10'3 (4.5-11.0)
[2022-01-21 14:05] LABS: CLARITY,URINE CLEAR (Clear); COLOR,URINE YELLOW (Yellow); GLUCOSE, URINE NEGATIVE (Neg); KETONES,URINE NEGATIVE (Neg); LEUKOCYTE ESTERASE ,URINE NEGATIVE (Neg); NITRITES, URINE NEGATIVE (Neg); OCCULT BLOOD,URINE NEGATIVE (Neg); PROTEIN,URINE NEGATIVE (Neg)
[2022-01-21 14:13] LABS: UA COLLECTION TYPE URINAL
[2022-01-21 14:17] LABS: ALANINE AMINOTRANSFERASE 21 U/L (12-78); ALBUMIN 3.2 G/DL (3.4-5.0); ALBUMIN/GLOBULIN RATIO 0.9 (1.1-1.5); ALKALINE PHOSPHATASE 127 IU/L (46-116); ANION GAP 6 (8-16); ASPARTATE AMINO TRANSFERASE 23 U/L (10-37); BILIRUBIN,TOTAL 0.3 MG/DL (0.1-1.0); BLOOD UREA NITROGEN 12 MG/DL (7-18); BUN/CREATININE RATIO 18.2 (5.4-32.0); CALCIUM 8.6 MG/DL (8.5-10.1); CHLORIDE 101 MMOL/L (99-107); CREATININE 0.66 MG/DL (0.60-1.10); GLUCOSE 101 MG/DL (70-104); POTASSIUM 4.2 MMOL/L (3.5-5.1); SODIUM 134 MMOL/L (135-145); TOTAL CARBON DIOXIDE 27.5 MMOL/L (24-32); TOTAL PROTEIN 6.8 G/DL (6.4-8.2); eGFR > 90 ML/MIN
[2022-01-21 14:20] LABS: PLATELET ESTIMATE NORMAL
[2022-01-21 14:21] LABS: ANISOCYTOSIS 2+; ELLIPTOCYTES FEW; MICROCYTOSIS 2+
--- NOTE | 2022-01-21 14:38 | NUR ---
RT AT BS
[2022-01-21 15:58] VITALS: BP 120/77
[2022-01-21] MEDS ORDERED: ALBU8HFA PO (16:00)
[2022-01-21] MEDS ORDERED: DOXY-11 PO (16:00)
[2022-01-21] MEDS ORDERED: DOXYCYCLINE 100MG CAPSULE PO STA (16:02)
== END 2022-01-21 16:51 | disposition home or self-care (01) ==
LOC: ER 11:03
DX: J18.9 Pneumonia, unspecified organism (principal); D64.9 Anemia, unspecified; R51.9 Headache, unspecified; R10.31 Right lower quadrant pain; R53.1 Weakness; R53.83 Other fatigue; J02.9 Acute pharyngitis, unspecified; J44.9 Chronic obstructive pulmonary disease, unspecified; K21.9 Gastro-esophageal reflux disease without esophagitis; F41.9 Anxiety disorder, unspecified; F32.A Depression, unspecified; F12.90 Cannabis use, unspecified, uncomplicated; Z86.73 Personal history of transient ischemic attack (TIA), and cerebral infarction without residual deficits; Z86.69 Personal history of other diseases of the nervous system and sense organs; Z87.11 Personal history of peptic ulcer disease; Z86.2 Personal history of diseases of the blood and blood-forming organs and certain disorders involving the immune mechanism; Z86.14 Personal history of Methicillin resistant Staphylococcus aureus infection; Z90.49 Acquired absence of other specified parts of digestive tract; Z98.890 Other specified postprocedural states; Z72.89 Other problems related to lifestyle; Z59.00 Homelessness unspecified; Z88.0 Allergy status to penicillin; Z88.1 Allergy status to other antibiotic agents; Z88.6 Allergy status to analgesic agent; Z79.2 Long term (current) use of antibiotics
CPT/HCPCS: 71045; 80053; 81003; 85008; 85025; 87081; 87502; 87503; 87880; 94640; 96360; 96361; 99284; J1100; J7030; 94760

== ENCOUNTER 2022-01-22 18:23 | Emergency (ER) | payer MEDICARE, MEDICAID ==
[~2022-01-22] VITALS: Ht 188 cm; Wt 88.8 kg
[~2022-01-22 18:23] MED LIST changes: +ALBU8HFA PO; +DOXY-11 PO
[2022-01-23 04:48] VITALS: BP 155/87
== END 2022-01-23 04:50 | disposition home or self-care (01) ==
LOC: ER 18:23
DX: R05.9 Cough, unspecified (principal); J44.9 Chronic obstructive pulmonary disease, unspecified; K21.9 Gastro-esophageal reflux disease without esophagitis; F12.90 Cannabis use, unspecified, uncomplicated; Z59.00 Homelessness unspecified; Z88.0 Allergy status to penicillin; Z88.1 Allergy status to other antibiotic agents; Z88.5 Allergy status to narcotic agent; Z88.6 Allergy status to analgesic agent; Z90.49 Acquired absence of other specified parts of digestive tract
CPT/HCPCS: 71046; 99283

== ENCOUNTER 2022-01-25 08:23 | Emergency (ER) | payer MEDICARE, MEDICAID ==
[~2022-01-25] VITALS: Ht 182.9 cm; Wt 88.8 kg
[2022-01-25 08:26] VITALS: BP 138/72
[2022-01-25] MEDS ORDERED: DOXY-1 PO (10:56)
== END 2022-01-25 11:32 | disposition home or self-care (01) ==
LOC: ER 08:24
DX: R53.81 Other malaise (principal); J44.9 Chronic obstructive pulmonary disease, unspecified; K21.9 Gastro-esophageal reflux disease without esophagitis; F41.9 Anxiety disorder, unspecified; F32.A Depression, unspecified; F12.90 Cannabis use, unspecified, uncomplicated; Z76.0 Encounter for issue of repeat prescription; Z59.00 Homelessness unspecified; Z86.73 Personal history of transient ischemic attack (TIA), and cerebral infarction without residual deficits; Z86.69 Personal history of other diseases of the nervous system and sense organs; Z87.01 Personal history of pneumonia (recurrent); Z87.11 Personal history of peptic ulcer disease; Z86.2 Personal history of diseases of the blood and blood-forming organs and certain disorders involving the immune mechanism; Z86.14 Personal history of Methicillin resistant Staphylococcus aureus infection; Z90.49 Acquired absence of other specified parts of digestive tract; Z98.890 Other specified postprocedural states; Z72.89 Other problems related to lifestyle; Z88.0 Allergy status to penicillin; Z88.6 Allergy status to analgesic agent; Z88.8 Allergy status to other drugs, medicaments and biological substances; Z79.2 Long term (current) use of antibiotics
CPT/HCPCS: 71045; 99284

== ENCOUNTER 2022-01-26 18:35 | Emergency (ER) | payer MEDICARE, MEDICAID ==
[~2022-01-26] VITALS: Ht 188 cm; Wt 81.8 kg
[~2022-01-26 18:35] MED LIST changes: +DOXY-1 PO
[2022-01-26 18:44] VITALS: BP 113/82
[2022-01-26 19:16] LABS: BASOPHILS % (AUTO) 0.7 % (0-1); EOSINOPHILS % (AUTO) 0.9 % (0-6); HEMATOCRIT 26.2 % (42.0-52.0); LYMPHOCYTES # (AUTO) 1.1 X10'3 (1.1-4.8); MEAN CORPUSCULAR HEMOGLOBIN 20.4 PG (27.0-31.0); MEAN CORPUSCULAR HGB CONC 30.5 g/dL (33.0-36.5); MEAN PLATELET VOLUME 8.3 FL (7.4-10.4); MONOCYTES # (AUTO) 0.5 X10'3 (0-0.9); NEUTROPHILS # (AUTO) 2.8 X10'3 (1.8-7.7); NEUTROPHILS % (AUTO) 61.4 % (42-75); PLATELET COUNT 237 X10'3 (140-440); RED BLOOD COUNT 3.91 X10'6 (4.70-6.10); RED CELL DISTRIBUTION WIDTH 18.8 % (11.5-14.5); WHITE BLOOD COUNT 4.5 X10'3 (4.5-11.0)
[2022-01-26 19:31] LABS: ALANINE AMINOTRANSFERASE 20 U/L (12-78); ALBUMIN/GLOBULIN RATIO 0.9 (1.1-1.5); ALKALINE PHOSPHATASE 130 IU/L (46-116); ANION GAP 11 (8-16); ASPARTATE AMINO TRANSFERASE 18 U/L (10-37); BILIRUBIN,TOTAL 0.3 MG/DL (0.1-1.0); BLOOD UREA NITROGEN 19 MG/DL (7-18); BUN/CREATININE RATIO 22.4 (5.4-32.0); CHLORIDE 104 MMOL/L (99-107); CREATININE 0.85 MG/DL (0.60-1.10); GLUCOSE 99 MG/DL (70-104); SODIUM 140 MMOL/L (135-145); TOTAL CARBON DIOXIDE 25.4 MMOL/L (24-32); TOTAL PROTEIN 6.4 G/DL (6.4-8.2); eGFR > 90 ML/MIN
--- NOTE | 2022-01-26 20:13 | NUR ---
PT HOMELESS FREQUENT FLYER AWARE OF STATEMENTS MADE BY PATIENT AND CSSRS SCREENING. ER PROVIDER IS DC PATIENT. PT GIVEN MEAL.
== END 2022-01-26 20:27 | disposition home or self-care (01) ==
LOC: ER 18:36
DX: J18.9 Pneumonia, unspecified organism (principal); J44.9 Chronic obstructive pulmonary disease, unspecified; K21.9 Gastro-esophageal reflux disease without esophagitis; F31.9 Bipolar disorder, unspecified; Z86.14 Personal history of Methicillin resistant Staphylococcus aureus infection; F12.10 Cannabis abuse, uncomplicated; Z56.0 Unemployment, unspecified; Z88.6 Allergy status to analgesic agent; Z88.0 Allergy status to penicillin; Z88.1 Allergy status to other antibiotic agents; Z88.5 Allergy status to narcotic agent
CPT/HCPCS: 36415; 80053; 85025; 99283

== ENCOUNTER 2022-01-31 06:18 | Emergency (ER) | payer MEDICARE, MEDICAID ==
[~2022-01-31 06:18] MED LIST changes: -DOXY-11 PO
== END 2022-01-31 08:57 | disposition left against medical advice (07) ==
LOC: ER 06:19
DX: Z00.8 Encounter for other general examination (principal); Z53.21 Procedure and treatment not carried out due to patient leaving prior to being seen by health care provider

== ENCOUNTER 2022-02-02 14:05 | Emergency (ER) | payer MEDICARE, MEDICAID ==
[~2022-02-02] VITALS: Ht 188 cm; Wt 92.0 kg
[~2022-02-02 14:05] MED LIST changes: -DOXY-1 PO
[2022-02-02 14:08] VITALS: BP 117/61
[2022-02-02] MEDS ORDERED: iohexol 300mg/ml 100ml inj. ONE (15:33)
[2022-02-02 15:43] LABS: BASOPHILS % (AUTO) 0.5 % (0-1); EOSINOPHILS % (AUTO) 0.7 % (0-6); HEMATOCRIT 26.5 % (42.0-52.0); LYMPHOCYTES # (AUTO) 0.6 X10'3 (1.1-4.8); LYMPHOCYTES % (AUTO) 15.6 % (21-51); MEAN CORPUSCULAR HEMOGLOBIN 20.2 PG (27.0-31.0); MEAN CORPUSCULAR HGB CONC 30.1 g/dL (33.0-36.5); MEAN CORPUSCULAR VOLUME 67.3 FL (78-98); MEAN PLATELET VOLUME 8.5 FL (7.4-10.4); MONOCYTES # (AUTO) 0.5 X10'3 (0-0.9); NEUTROPHILS % (AUTO) 72.2 % (42-75); PLATELET COUNT 180 X10'3 (140-440); RED BLOOD COUNT 3.94 X10'6 (4.70-6.10); RED CELL DISTRIBUTION WIDTH 18.3 % (11.5-14.5); WHITE BLOOD COUNT 4.1 X10'3 (4.5-11.0)
[2022-02-02 15:57] LABS: ALANINE AMINOTRANSFERASE 18 U/L (12-78); ALBUMIN 3.1 G/DL (3.4-5.0); ALKALINE PHOSPHATASE 122 IU/L (46-116); ANION GAP 2 (8-16); ASPARTATE AMINO TRANSFERASE 28 U/L (10-37); BILIRUBIN,TOTAL 0.3 MG/DL (0.1-1.0); BLOOD UREA NITROGEN 18 MG/DL (7-18); BUN/CREATININE RATIO 21.4 (5.4-32.0); CALCIUM 8.1 MG/DL (8.5-10.1); CHLORIDE 104 MMOL/L (99-107); CREATININE 0.84 MG/DL (0.60-1.10); GLUCOSE 98 MG/DL (70-104); POTASSIUM 4.6 MMOL/L (3.5-5.1); SODIUM 137 MMOL/L (135-145); TOTAL CARBON DIOXIDE 30.7 MMOL/L (24-32); TOTAL PROTEIN 6.3 G/DL (6.4-8.2); eGFR > 90 ML/MIN
[2022-02-02 16:18] LABS: ACANTHOCYTES FEW; ANISOCYTOSIS 2+; ELLIPTOCYTES FEW; HYPOCHROMASIA 2+; MICROCYTOSIS 2+; PLATELET ESTIMATE NORMAL; SCHISTOCYTES FEW
--- NOTE | 2022-02-02 20:04 | NUR ---
[facility] CONTACTED TO VERIFY THAT PT WAS WELCOME AND THERE IS SPACE AVAILABLE FOR HIM. [facility] CONFIRMED THAT THERE IS SPACE AND PT IS WELCOME. [facility] CONTACTED FOR TRANSPORTATION TO [facility].
== END 2022-02-02 20:07 | disposition home or self-care (01) ==
LOC: ER 14:05
DX: R11.2 Nausea with vomiting, unspecified (principal); J44.9 Chronic obstructive pulmonary disease, unspecified; K21.9 Gastro-esophageal reflux disease without esophagitis; F41.9 Anxiety disorder, unspecified; F32.A Depression, unspecified; F12.90 Cannabis use, unspecified, uncomplicated; Z86.73 Personal history of transient ischemic attack (TIA), and cerebral infarction without residual deficits; Z86.69 Personal history of other diseases of the nervous system and sense organs; Z87.01 Personal history of pneumonia (recurrent); Z87.11 Personal history of peptic ulcer disease; Z86.2 Personal history of diseases of the blood and blood-forming organs and certain disorders involving the immune mechanism; Z86.14 Personal history of Methicillin resistant Staphylococcus aureus infection; Z90.49 Acquired absence of other specified parts of digestive tract; Z98.890 Other specified postprocedural states; Z72.89 Other problems related to lifestyle; Z59.00 Homelessness unspecified; Z88.0 Allergy status to penicillin; Z88.1 Allergy status to other antibiotic agents; Z88.6 Allergy status to analgesic agent; Z79.899 Other long term (current) drug therapy
CPT/HCPCS: 36415; 74177; 80053; 85008; 85025; 99285; J3490; Q9967

== ENCOUNTER 2024-09-28 09:51 | Emergency (ER) | payer MEDICARE, MEDICAID ==
[~2024-09-28] VITALS: Ht 188 cm; Wt 90.5 kg
[~2024-09-28 09:51] MED LIST changes: -ALBU8HFA PO
[2024-09-28 09:53] VITALS: TEMP 96.3
--- NOTE | 2024-09-28 10:33 | RADIOLOGY REPORT ---
DI HUMERUS (2VWS), INDICATION: LT. HUMERUS PAIN AFTER FALL TECHNICAL DATA: Frontal and lateral views were obtained of the left humerus. COMPARISON: ELBOW, COMPLETE (3VW MIN) on DOS: 01/07/22, CLAVICLE on DOS: 06/08/21 FINDINGS: Probable ossificationof the mid shaft humerus from old fracture deformity. Old left sided rib fractu re. Soft tissues are normal. IMPRESSION: Probable ossificationof the mid shaft humerus from old fracture deformity. Old left sided rib fractu re.
[2024-09-28 11:39] VITALS: BP 105/74; PULSE 79; RESP 16; O2SAT 100
--- NOTE | 2024-09-28 13:17 | Physician Documentation ---
History of Present Illness ~ Chief Complaint: Shoulder pain Stated Complaint: SHOULDER PAIN Time Seen by MD: 11:58 Primary Medical Doctor: none HPI Patient is seen today with complaints of pain in his left humerus. Patient does admit to previous fracture of this left arm/humerus years ago. Patient states he fell yesterday tripped and fell and hurt it again. Patient states he does have an appointment with water resource specialist at [facility] later this week on . Patient has no other concern or complaint at this time. Tetanus within 5 years?: No Medication Reconciliation Allergies: Coded Allergies: acetaminophen (Verified Allergy, Severe, PT GETS HIVES, 09/28/24) Penicillins (Verified Allergy, Unknown, 09/28/24) cephalexin (Verified Allergy, Unknown, NAUSEA, SWEATING, LIGHT HEADED, 09/28/24) prednisone (Verified Allergy, Unknown, 09/28/24) Miscellaneous Medications Home Med List (No Home Medications), (Reported) Past Medical History Past Medical History: CVA/TIA/Stroke, Seizures, Asthma, COPD, Pneumonia, Cirrohsis, GERD, GI Bleed, Liver Failure, Pancreatitis, Peptic Ulcer Disease, Anemia, Hernia, Extremity Fracture, Cellulitis, MRSA Abscess, Anxiety, Depression Past Surgical History: cholecystectomy, gastric bypass, orthopedic surgeries, other Other Past Family History: NONCONTRIBUTORY Alcohol Use: Sober Drug Use: marijuana Lives with: Family Lives In: Homeless Occupation: disabled Review of Systems Constitutional: Denies: chills, fever, weakness Eyes: Denies: pain, blurred vision ENT: Denies: ear pain, nose pain, throat pain, mouth pain Respiratory: Denies: cough, shortness of breath Cardiovascular: Denies: chest pain, palpitations Gastrointestinal: Denies: abdominal pain, nausea, vomiting Genitourinary: Denies: burning, dysuria Male Genitalia: Denies: penile discharge, testicular pain Neurological: Denies: headache, dizziness Musculoskeletal: Denies: pain, swelling Integumentary: Denies: rash, lesions Allergic/Immunologic: Denies: hives, itching Hematologic/Lymphatic: Denies: no symptoms reported Psychiatric: Denies: depression, anxiety Physical Exam Vital Signs: Temperature: 96.3, Source: Temporal, Heart Rate: 79, Respiratory Rate: 16, BP: 105/74, Pulse Oximetry: 100, Weight: 90.450 Oxygen Flow Rate: 0 Physical Exam General: Awake and Alert, no acute distress. HEENT: Conjunctiva pink, Sclera clear, Mucus Membranes moist. Neck: Supple without masses and tenderness. Musculoskeletal: Patient on exam does have decreased range of motion of his left shoulder and elbow on exam and is neurovascularly intact distally. Motor function intact distally. Patient does have tenderness to palpation of the midshaft of the left humerus. Extremities: No cyanosis,clubbing or edema. Skin: Warm and Dry. Progress Results/Orders Results/Orders Orders - VICTORINO MONACO PAC Humerus (2vws) (09/28/24 10:18) Completed Orders - VICTORINO MONACO PAC Humerus (2vws) (09/28/24 10:18) Vital Signs 09/28/24 09/28/24 09:53 11:39 Temp 96.3 Pulse 81 79 Resp 16 16 B/P (MAP) 119/80 105/74 (84) Pulse Ox 100 100 O2 Flow Rate 0 0 EKG/XRAY/CT/US/VASC/MRI Bone/Soft Tissue X-Ray (Ext.) : Additional Comment X-ray of the left humerus interpreted by myself today shows ossification of the left humerus from apparent old appearing fracture deformity. I do not appreciate any sign of acute fracture. DIAGNOSTIC RADIOLOGY Patient: EDWIN LARSEN II Medical Record: [id number] [facility] : 1970, Age: 53 Sex: Male Location: ER Patient Status: REG ER Service Date/Time: 09/28/241017 Ordering Physician: VICTORINO MONACO Exam: HUMERUS (2VWS) DI HUMERUS (2VWS), INDICATION: LT. HUMERUS PAIN AFTER FALL TECHNICAL DATA: Frontal and lateral views were obtained of the left humerus. COMPARISON: ELBOW, COMPLETE (3VW MIN) on DOS: 01/07/22, CLAVICLE on DOS: 06/08/21 FINDINGS: Probable ossificationof the mid shaft humerus from old fracture deformity. Old left sided rib fracture. Soft tissues are normal. IMPRESSION: Probable ossificationof the mid shaft humerus from old fracture deformity. Old left sided rib fracture. Electronically Signed by:PRIYANK NIX MD Date & Time: 09/28/241029 Dictated by: PRIYANK NIX MD Dictation date and time: 09/28/24 1030 Primary Care Provider: NO PRIMARY CARE PROVIDER cc: VICTORINO MONACO ~ Medical Decision Making Findings Patient is seen today with complaints of pain in his left humerus. Patient does admit to previous fracture of this left arm/humerus years ago. Patient states he fell yesterday tripped and fell and hurt it again. Patient states he does have an appointment with water resource specialist at [facility] later this week on . Patient has no other concern or complaint at this time. Patient did have x-ray of left humerus that did show old fracture deformity without any sign of acute fracture or dislocation. Patient will keep appointment with [facility] and will return to ED with any worsening, concerning or changing symptoms. Departure Disposition: 01 HOME / SELF CARE / HOMELESS Impression: Primary Impression: Pain in left arm Condition: Improved Discharge Instructions: Shoulder Pain, [id number] Additional Instructions: Patient did have x-ray of left humerus that did show old fracture deformity without any sign of acute fracture or dislocation. Patient will keep appointment with [facility] and will return to ED with any worsening, concerning or changing symptoms. Referrals: NO PRIMARY CARE PROVIDER (PCP) Signature Scribe Signature: No scribe Attestation: No scribe VICTORINO MONACO Sep 28, 2024 13:17
== END 2024-09-28 13:38 | disposition left against medical advice (07) ==
LOC: ER 09:52
DX: M79.622 Pain in left upper arm (principal); J44.9 Chronic obstructive pulmonary disease, unspecified; F41.9 Anxiety disorder, unspecified; F32.A Depression, unspecified; F12.90 Cannabis use, unspecified, uncomplicated; Z88.0 Allergy status to penicillin; Z88.1 Allergy status to other antibiotic agents; Z88.8 Allergy status to other drugs, medicaments and biological substances; Z90.49 Acquired absence of other specified parts of digestive tract; Z98.84 Bariatric surgery status; W01.0XXA Fall on same level from slipping, tripping and stumbling without subsequent striking against object, initial encounter; Y93.89 Activity, other specified; Y92.89 Other specified places as the place of occurrence of the external cause; Y99.8 Other external cause status
CPT/HCPCS: 73060; 99283

== ENCOUNTER 2024-10-08 09:20 | Outpatient (CLI) | payer MEDICARE, MEDICAID ==
--- NOTE | 2024-10-08 11:05 | RADIOLOGY REPORT ---
CLINICAL INFORMATION: 53 years old, Male; PAIN IN ELBOW. COMPARISON: DI HUMERUS (2VWS) on DOS: 09/28/24, ELBOW, COMPLETE (3VW MIN) on DOS: 01/07/22, CLAVICLE o n DOS: 06/08/21 TECHNIQUE: Multisequence multiplanar MRI images of the left elbow were obtained without contrast. FINDINGS: BONES/JOINT: No evidence of acute fracture or focal marrow contusion given the limitations of the exa mination. Likely Moderate arthritic changes. No definite joint effusion demonstrated given the limita tions of the examination. TENDONS: Common extensor and common flexor tendons are poorly evaluated due to artifact. Distal tran ps tendon, brachialis tendon, and triceps tendon appear intact. Possible mild tendinosis of the dista l triceps tendon. LIGAMENTS: Ulnar collateral ligament appears grossly intact. Radial collateral ligament, lateral ulna r collateral ligament, and annular ligament appear grossly intact. CUBITAL TUNNEL: Grossly unremarkable. MUSCLES: Nonspecific trace fluid along the fascial planes at the volar aspect of the elbow between th e distal biceps muscle and brachialis muscle and coursing along adjacent superficial fascial planes. OTHER: Limited examination due to motion artifact, loss of signal artifact, and other artifacts. Very limited sagittal PD fat-sat image due to artifact. Moderate to marked subcutaneous edema around the elbow. IMPRESSION: 1. Very limited examination for the reasons described above. 2. No evidence for acute fracture. 3. No tendon tear identified, although the common flexor and extensor tendons are poorly visualized d ue to artifact. 4. No ligamentous tear identified given the limitations of the exam. 5. Moderate to marked subcutaneous edema around the elbow is nonspecific. Trace fluid along fascial p lanes at the volar aspect of the elbow also noted, may be due to strain or nonspecific inflammation.
== END 2024-10-08 23:59 | disposition home or self-care (01) ==
LOC: MRI02 09:20
PROVIDERS: ATTEND Pediatrics Sports Medicine
DX: S46.212A Strain of muscle, fascia and tendon of other parts of biceps, left arm, initial encounter (principal); M25.512 Pain in left shoulder; R60.0 Localized edema; X58.XXXA Exposure to other specified factors, initial encounter; Y93.89 Activity, other specified; Y92.89 Other specified places as the place of occurrence of the external cause; Y99.8 Other external cause status
CPT/HCPCS: 73221